=== PATIENT | male | born 1935 | race Caucasian/White ===

== ENCOUNTER 2016-06-18 09:53 | Emergency (ER) | payer OTHER ==
[~2016-06-18] VITALS: Ht 167.6 cm; Wt 58.1 kg
[~2016-06-18 09:53] MED LIST: ASPIRIN81 M2 PO; LEVAQUIN750 MG PO; MECLIZINE HCL25 M2 PO; METFORMIN HCL500 MG PO; SIMVASTATIN10 M1 PO
[2016-06-18 10:12] VITALS: BP 119/85
--- NOTE | 2016-06-18 10:20 | NUR ---
Patient to bed 08.
--- NOTE | 2016-06-18 10:25 | NUR ---
PATIENT PRESENTS TO ED WITH COUGH X 1MONTH . PER SON, IT HAS BEEN GETTING WORSE . DENIES N/V/D; SKIN IS PINK/WARM/DRY; AAOX4 WITH EVEN AND STEADY GAIT; LUNGS CLEAR BL; HR EVEN AND REGULAR; PT DENIES ANY FEVER, CP, SOB, OR COUGH AT THIS TIME; PATIENT STATES PAIN OF 0/10 AT THIS TIME; VSS; PATIENT POSITIONED FOR COMFORT; HOB ELEVATED; BEDRAILS UP X2; BED DOWN. ER MD MADE AWARE OF PT STATUS.
--- NOTE | 2016-06-18 10:27 | NUR ---
Dr. Soto evaluating patient at bedside.
[2016-06-18] MEDS ORDERED: NACL 0.9% 1,000 ML IV ONE (10:35)
--- NOTE | 2016-06-18 10:50 | NUR ---
CXR AT BEDSIDE.
[2016-06-18 12:24] VITALS: BP 115/91
--- NOTE | 2016-06-18 12:25 | NUR ---
Patient discharged with v/s stable. Written and verbal after care instructions given and explained. Patient alert, oriented and verbalized understanding of instructions. Ambulatory with steady gait. All questions addressed prior to discharge. ID band removed. Patient advised to follow up with PMD. Rx of LEVAQUIN given. Patient educated on indication of medication including possible reaction and side effects. Opportunity to ask questions provided and answered.
[2016-07-28] MEDS ORDERED: FEROSUL325 MG PO (16:48)
[2016-07-28] MEDS ORDERED: MACROBID100 M1 PO (16:48)
== END 2016-06-18 12:25 | disposition home or self-care (01) ==
LOC: MED 09:53
DX: J18.9 Pneumonia, unspecified organism (principal); E11.65 Type 2 diabetes mellitus with hyperglycemia; R91.8 Other nonspecific abnormal finding of lung field; Z86.73 Personal history of transient ischemic attack (TIA), and cerebral infarction without residual deficits
CPT/HCPCS: 36415; 71010; 80053; 82948; 85025; 96360; 99285; J7030; Q0092

== ENCOUNTER 2016-07-24 18:16 | Inpatient (IN) | payer OTHER ==
[~2016-07-24] VITALS: Ht 167.6 cm; Wt 68.0 kg
[~2016-07-24 18:16] MED LIST changes: +ASPI81TA28 PO; -ASPIRIN81 M2 PO; -LEVAQUIN750 MG PO; +MECL-221 PO; -MECLIZINE HCL25 M2 PO; +METF500T4 PO; -METFORMIN HCL500 MG PO; +SIMV10TA6 PO; -SIMVASTATIN10 M1 PO
[2016-07-24 19:12] VITALS: BP 102/98
[2016-07-24] MEDS ORDERED: NACL 0.9% 1,000 ML IV ONE (19:38)
[2016-07-24 20:20] LABS: BASOPHILS # (AUTO) 0.1 K/uL (0.00-0.22); BASOPHILS % (AUTO) 0.7 % (0.0-2.0); EOSINOPHILS # (AUTO) 0.2 K/uL (0-0.4); EOSINOPHILS % (AUTO) 2.5 % (0.0-4.0); HEMATOCRIT 39.7 % (36-52); HEMOGLOBIN 12.6 g/dL (12.0-18.0); LYMPHOCYTES # (AUTO) 1.2 K/uL (2.0-11.5); LYMPHOCYTES % (AUTO) 13.7 % (20.5-51.1); MEAN CORPUSCULAR HEMOGLOBIN 25 pg (27-31); MEAN CORPUSCULAR HGB CONC 32 g/dL (33-37); MEAN CORPUSCULAR VOLUME 78 fL (80-94); MONOCYTES # (AUTO) 0.9 K/uL (0.8-1.0); MONOCYTES % (AUTO) 11.1 % (1.7-9.3); NEUTROPHILS # (AUTO) 6.2 K/uL (1.8-7.7); PLATELET COUNT (AUTO) 365 K/uL (140-450); RED BLOOD CELL COUNT(AUTO) 5.09 MIL/uL (4.20-6.10); RED CELL DISTRIBUTION WIDTH 15.4 % (11.6-13.7); WHITE BLOOD COUNT (AUTO) 8.6 K/uL (4.8-10.8)
[2016-07-24 20:32] LABS: ANION GAP 9.9 (8-16); CALCIUM 9.2 mg/dL (8.5-10.1); CARBON DIOXIDE 31.5 mmol/L (21-32); CHLORIDE 105 mmol/L (98-107); CREATININE 1.1 mg/dL (0.6-1.3); GLUCOSE 125 mg/dL (74-106); POTASSIUM 4.4 mmol/L (3.5-5.1); SODIUM SERUM 142 mmol/L (136-145); UREA NITROGEN, BLOOD 21 mg/dL (7-18)
[2016-07-24 20:38] LABS: ALANINE AMINOTRANSFERASE 14 U/L (12-78); ALBUMIN 3.4 g/dL (3.4-5.0); ALKALINE PHOSPHATASE 98 U/L (46-116); ASPARTATE AMINOTRANSFERASE 17 U/L (15-37); LIPASE 249 U/L (73-393); TOTAL BILIRUBIN 0.5 mg/dL (0.0-1.0); TOTAL PROTEIN, SERUM 7.9 g/dL (6.4-8.2)
[2016-07-24 20:41] LABS: LACTIC ACID 0.8 mmol/L (0.4-2.0)
[2016-07-24 20:42] LABS: INR 1.2 (0.8-1.2); PROTHROMBIN TIME 11.1 secs (10.8-13.4)
--- NOTE | 2016-07-24 20:51 | NUR ---
Patient to bed 03.
--- NOTE | 2016-07-24 20:55 | NUR ---
Dr. Pierre evaluating patient at bedside.
--- NOTE | 2016-07-24 21:12 | NUR ---
PATIENT PRESENTS TO ED S/P FALL . PT STATES HE FEELS NO PAIN AT THIS TIME . DENIES N/V/D; SKIN IS PINK/WARM/DRY; AAOX4 WITH EVEN AND STEADY GAIT; LUNGS CLEAR BL; HR EVEN AND REGULAR; PT DENIES ANY FEVER, CP, SOB, OR COUGH AT THIS TIME; PATIENT STATES PAIN OF 0/10 AT THIS TIME; VSS; PATIENT POSITIONED FOR COMFORT; HOB ELEVATED; BEDRAILS UP X2; BED DOWN. ER MD MADE AWARE OF PT STATUS. SON AT BEDSIDE
[2016-07-24 22:07] LABS: APPEARANCE,URINE SL CLOUDY (CLEAR); BILIRUBIN,URINE NEGATIVE (NEGATIVE); BLOOD, URINE TRACE-L (NEGATIVE); COLOR,URINE YELLOW (YELLOW); LEUKOCYTE ESTERASE ,URINE 1+ (NEGATIVE); NITRITE, URINE NEGATIVE (NEGATIVE); PROTEIN,URINE 2+ (NEGATIVE); UGLUCOSE 2+ (NEGATIVE); UROBILINOGEN,URINE 0.2 EU/dL (0.2 - 1)
[2016-07-24 22:19] LABS: BACTERIA,URINE 4+ /HPF (None Seen); RBC,URINE 0-5 (RARE) /HPF (0-5); WBC,URINE TOO MANY TO COUNT /HPF (0-5)
[2016-07-24 22:20] LABS: SQUAMOUS EPITHELIAL CELL,UR None Seen /LPF (0-3 (FEW))
[2016-07-24] MEDS ORDERED: cefTRIAXone 1,000 MG VIAL ONE (22:46)
[2016-07-24] MEDS ORDERED: ACETAMINOPHEN 325 MG TAB PO PRN (23:10)
[2016-07-24] MEDS ORDERED: ONDANSETRON 4 MG/2 ML VIAL IVP PRN (23:10)
[2016-07-24] MEDS ORDERED: DEXTROSE 50% 50 ML SYR IVP PRN (23:15)
[2016-07-24] MEDS ORDERED: INSULIN LISPRO SLIDING SCALE 100 UNITS/ML VIAL SUBQ PRN (23:15)
[2016-07-24] MEDS: NACL 0.9% 1,000 ML IV SCH (23:25)
--- NOTE | 2016-07-24 23:48 | NUR ---
Patient will be admitted to care of DR. HEATH. Admited to TELE. Will go to room 109B. Belongings list completed. Report to DOMINGA MARI.
--- NOTE | 2016-07-25 00:04 | NUR ---
Pt report given to DOMINGA MARI. Transfer of care at this time.
[2016-07-25 00:10] VITALS: BP 150/89
[2016-07-25 00:14] LABS: FREE T4 (FREE THYROXINE) 1.05 ng/dL (0.76-1.46); THYROID STIMULATING HORMONE 1.15 uIU/mL (0.34-3.76)
--- NOTE | 2016-07-25 00:30 | NUR ---
PATIENT ARRIVED TO UNIT VIA GURNEY. PATIENT IS AWAKE AND ALERT. ORIENTED X4 WITH OCCASIONAL FORGETFULNESS. PATIENT ABLE TO ASSIST IN TRANSFERRING HIMSELF TO THE BED. PATIENT IS ON ROOM AIR, NO SOB OR SIGN OF DISTRESS NOTED. PATIENT SKIN IS INTACT, DENIES PAIN AT THIS TIME. IV TO RIGHT UPPER ARM PATENT AND INTACT. PATIENT CONNECTED TO TELE BOX, ORIENTED PATIENT TO ROOM AND CALL LIGHT, DISCUSSED PLAN OF CARE WITH PATIENT, PATIENT VERBALIZED UNDERSTANDING, SAFETY MEASURES CHECKED, CALL LIGHT WITHIN REACH. WILL CONTINUE TO MONITOR. VITAL SIGNS STABLE.
--- NOTE | 2016-07-25 01:00 | NUR ---
PROVIDED PATIENT WITH SANDWICH, PATIENT RESTING IN BED, BED ALARM ON, REINFORCE PATIENT TO USE URINAL IF NEEDS TO USE RESTROOM, CALL LIGHT WITHIN REACH, WILL CONTINUE TO MONITOR.
[2016-07-25] MEDS ORDERED: INFLUENZA VIRUS VACCINE QUAD 0.5 ML SYR IMVAC ONE (02:25)
[2016-07-25] MEDS ORDERED: PNEUMOCOCCAL VACCINE 23 MCG/0.5 ML VIAL IMVAC ONE (02:25)
--- NOTE | 2016-07-25 02:30 | NUR ---
PATIENT SLEEPING, NO SOB OR SIGN OF DISTRESS, CALL LIGHT WITHIN REACH. WILL CONTINUE TO MONITOR.
[2016-07-25] MEDS ORDERED: INFLUENZA VIRUS VACCINE QUAD 0.5 ML SYR IMVAC PRN (02:35)
[2016-07-25] MEDS ORDERED: PNEUMOCOCCAL VACCINE 23 MCG/0.5 ML VIAL IMVAC PRN (02:35)
[2016-07-25 04:00] VITALS: BP 139/70
--- NOTE | 2016-07-25 04:15 | NUR ---
PATIENT GOT UPSET, STATING HE "HATES BEING IN THE HOSPITAL AND WANTS TO GO HOME" EXPLAINED TO PATIENT THE DOCTORS WANT TO MONITOR HIM AND MAKE SURE HE IS OKAY, PATIENT VERBALIZED UNDERSTANDING, APOLOGIZED FOR GETTING UPSET, VITAL SIGNS STABLE, CALL LIGHT WITHIN REACH. WILL CONTINUE TO MONITOR.
[2016-07-25] MEDS: HYDROcodone/APAP 5/325 MG 1 TAB TAB PO PRN ×2 (05:58→21:29)
[2016-07-25] MEDS: BLOOD GLUCOSE MONITORING 1 DEV DEV FS SCH ×4 (06:00→21:29)
--- NOTE | 2016-07-25 06:07 | NUR ---
BS CHECK 117, NO COVERAGE, PATIENT C/O PAIN IN KNEE, ADMINISTERED NORCO PER MD ORDER, CALL LIGHT WITHIN REACH. WILL CONTINUE TO MONITOR.
[2016-07-25 06:26] LABS: BASOPHILS # (AUTO) 0.1 K/uL (0.00-0.22); BASOPHILS % (AUTO) 0.8 % (0.0-2.0); EOSINOPHILS # (AUTO) 0.3 K/uL (0-0.4); EOSINOPHILS % (AUTO) 3.5 % (0.0-4.0); HEMATOCRIT 35.2 % (36-52); HEMOGLOBIN 11.6 g/dL (12.0-18.0); LYMPHOCYTES # (AUTO) 1.2 K/uL (2.0-11.5); LYMPHOCYTES % (AUTO) 15.3 % (20.5-51.1); MEAN CORPUSCULAR HEMOGLOBIN 25 pg (27-31); MEAN CORPUSCULAR HGB CONC 33 g/dL (33-37); MEAN CORPUSCULAR VOLUME 77 fL (80-94); NEUTROPHILS # (AUTO) 5.2 K/uL (1.8-7.7); NEUTROPHILS % (AUTO) 67.4 % (42.2-75.2); PLATELET COUNT (AUTO) 284 K/uL (140-450); RED BLOOD CELL COUNT(AUTO) 4.58 MIL/uL (4.20-6.10); RED CELL DISTRIBUTION WIDTH 15.2 % (11.6-13.7); WHITE BLOOD COUNT (AUTO) 7.8 K/uL (4.8-10.8)
[2016-07-25 06:37] LABS: ANION GAP 7.4 (8-16); CALCIUM 8.4 mg/dL (8.5-10.1); CARBON DIOXIDE 30.4 mmol/L (21-32); CHLORIDE 108 mmol/L (98-107); GLUCOSE 118 mg/dL (74-106); POTASSIUM 4.8 mmol/L (3.5-5.1); SODIUM SERUM 141 mmol/L (136-145); UREA NITROGEN, BLOOD 19 mg/dL (7-18)
[2016-07-25 06:45] LABS: MAGNESIUM 1.8 mg/dL (1.8-2.4); PHOSPHORUS 2.8 mg/dL (2.5-4.9)
--- NOTE | 2016-07-25 07:15 | NUR ---
PATIENT HAS BEEN SCREENED AND CATEGORIZED MODERATE NUTRITION RISK. PATIENT WILL BE SEEN WITHIN 3-5 DAYS OF ADMISSION. 07/27/16-07/29/16 OLIMPIA JJ MS, RDN
--- NOTE | 2016-07-25 07:23 | NUR ---
ENDORSED PATIENT TO DAY SHIFT RN AT BEDSIDE, PATIENT IN STABLE CONDITION.
--- NOTE | 2016-07-25 07:25 | NUR ---
RECEIVED REPORT FROM NIGHT RN. PT RESTING IN BED. AAOX4. NO S/S OF ACUTE DISTRESS. PT DENIES PAIN. IV SITE PATENT AND INTACT. CALL LIGHT WITHIN REACH. WILL CONTINUE TO MONITOR.
[2016-07-25 08:00] VITALS: BP 127/82
[2016-07-25] MEDS: ECOTRIN 81 MG TABEC PO SCH (08:18)
[2016-07-25] MEDS: LACTOBACILLUS RHAMNOSUS GG 1 EACH CAP PO SCH (08:19)
[2016-07-25] MEDS: metFORMIN 500 MG TAB PO SCH ×2 (08:19→17:11)
[2016-07-25] MEDS: DOCUSATE SODIUM 100 MG GELCAP PO SCH (08:19)
[2016-07-25] MEDS: NACL 0.9% 1,000 ML IV SCH ×2 (08:20→13:56)
--- NOTE | 2016-07-25 09:57 | NUR ---
PT RESTING IN BED. NO S/S OF ACUTE DISTRESS. PT TOLERATED AM MEDS WELL. PT DENIES PAIN. CALL LIGHT WITHIN REACH. SAFETY MEASURES ENSURED. WILL CONTINUE TO MONITOR.
[2016-07-25 12:00] VITALS: BP 120/69
--- NOTE | 2016-07-25 12:25 | NUR ---
PT RESTING IN BED. NO S/S OF ACUTE DISTRESS. PT DENIES PAIN. SON AT BEDSIDE. CALL LIGHT WITHIN REACH. SAFETY MEASURES ENSURED. WILL CONTINUE TO MONITOR.
--- NOTE | 2016-07-25 14:47 | NUR ---
PT RESTING IN BED. NO S/S OF ACUTE DISTRESS. PT DENIES PAIN. CALL LIGHT WITHIN REACH. SAFETY MEASURES ENSURED. WILL CONTINUE TO MONITOR.
--- NOTE | 2016-07-25 15:18 | NUR ---
P.T. NOTES P.T. EVAL ORDER CANCELLED; NURSE AWARE.
[2016-07-25 16:00] VITALS: BP_SYST 148; BP_SYST 157; BP_DIAS 78; BP_DIAS 81; BP_DIAS 99
--- NOTE | 2016-07-25 16:30 | NUR ---
PT RESTING IN BED. NO S/S OF ACUTE DISTRESS. PT DENIES PAIN. CALL LIGHT WITHIN REACH. WILL CONTINUE TO MONITOR.
[2016-07-25] MEDS: FERROUS SULFATE 325 MG TABEC PO SCH (17:11)
--- NOTE | 2016-07-25 19:14 | NUR ---
ENDORSED PLAN OF CARE TO NIGHT RN. PT REMAINS IN STABLE CONDITION
--- NOTE | 2016-07-25 19:25 | NUR ---
RECEIVED REPORT FROM DAY NURSEJESSIKA. PATIENT RESTING IN BED. NO RESPIRATORY DISTRESS, SOB, OR DISCOMFORT. INITIAL ASSESSMENT AND BODY CHECK DONE. PATIENT IS AOX2 WITH PERIODS OF CONFUSION. SKIN IS INTACT, IV ACCESS TO RIGHT UPPER ARM 20G, PATENT. DISCUSSED PLAN OF CARE, MEDICATION REGIMENT, AND PAIN MANAGEMENT WITH PATIENT. PLACED PATIENT ON SAFETY/FALL PRECAUTIONS. CALL LIGHT LEFT WITHIN REACH, WILL CONTINUE TO MONITOR.
[2016-07-25 20:00] VITALS: BP 137/82
[2016-07-25] MEDS: SIMVASTATIN 10 MG TAB PO SCH (21:29)
--- NOTE | 2016-07-25 22:22 | NUR ---
PATIENT IN BED, SLEEPING. NO RESPIRATORY DISTRESS, SOB, OR DISCOMFORT. CALL LIGHT LEFT WITHIN REACH, WILL CONTINUE TO MONITOR.
[2016-07-26] VITALS: BP 131/80
[2016-07-26] MEDS: NACL 0.9% 1,000 ML IV SCH
--- NOTE | 2016-07-26 01:12 | NUR ---
PATIENT'S LINEN AND GOWN CHANGED AT THIS TIME WITH CERAMICS TEACHER: ANDRÉS, AND RN: MILAGRO. PATIENT TOLERATED WELL. NO RESPIRATORY DISTRESS, SOB, OR DISCOMFORT. CALL LIGHT LEFT WITHIN REACH, WILL CONTINUE TO MONITOR.
--- NOTE | 2016-07-26 03:05 | NUR ---
PATIENT ASLEEP. NO RESPIRATORY DISTRESS, SOB, OR DISCOMFORT. CALL LIGHT LEFT WITHIN REACH, WILL CONTINUE TO MONITOR.
[2016-07-26 04:00] VITALS: BP 143/82
--- NOTE | 2016-07-26 06:03 | NUR ---
PATIENT SLEEPING. NO RESPIRATORY DISTRESS, SOB, OR DISCOMFORT. CALL LIGHT LEFT WITHIN REACH, WILL CONTINUE TO MONITOR.
[2016-07-26 06:26] LABS: ANION GAP 7.3 (8-16); CALCIUM 8.2 mg/dL (8.5-10.1); CARBON DIOXIDE 31.7 mmol/L (21-32); CHLORIDE 105 mmol/L (98-107); CREATININE 0.9 mg/dL (0.6-1.3); GLUCOSE 80 mg/dL (74-106); SODIUM SERUM 140 mmol/L (136-145); UREA NITROGEN, BLOOD 11 mg/dL (7-18)
[2016-07-26] MEDS: BLOOD GLUCOSE MONITORING 1 DEV DEV FS SCH ×4 (06:31→21:13)
[2016-07-26 06:47] LABS: BASOPHILS # (AUTO) 0.1 K/uL (0.00-0.22); BASOPHILS % (AUTO) 1.3 % (0.0-2.0); EOSINOPHILS # (AUTO) 0.2 K/uL (0-0.4); EOSINOPHILS % (AUTO) 3.4 % (0.0-4.0); HEMATOCRIT 37.4 % (36-52); HEMOGLOBIN 12.4 g/dL (12.0-18.0); LYMPHOCYTES # (AUTO) 1.1 K/uL (2.0-11.5); LYMPHOCYTES % (AUTO) 16.2 % (20.5-51.1); MEAN CORPUSCULAR HEMOGLOBIN 25 pg (27-31); MEAN CORPUSCULAR HGB CONC 33 g/dL (33-37); MEAN CORPUSCULAR VOLUME 77 fL (80-94); MONOCYTES # (AUTO) 0.9 K/uL (0.8-1.0); MONOCYTES % (AUTO) 13.2 % (1.7-9.3); NEUTROPHILS # (AUTO) 4.8 K/uL (1.8-7.7); NEUTROPHILS % (AUTO) 65.9 % (42.2-75.2); PLATELET COUNT (AUTO) 302 K/uL (140-450); RED BLOOD CELL COUNT(AUTO) 4.86 MIL/uL (4.20-6.10); RED CELL DISTRIBUTION WIDTH 15.3 % (11.6-13.7); WHITE BLOOD COUNT (AUTO) 7.1 K/uL (4.8-10.8)
[2016-07-26 06:58] LABS: MAGNESIUM 1.8 mg/dL (1.8-2.4); PHOSPHORUS 3.1 mg/dL (2.5-4.9)
--- NOTE | 2016-07-26 07:04 | NUR ---
REPORT GIVEN TO DAY NURSEJESSIKA. PATIENT RESTING IN BED, STABLE. NO RESPIRATORY DISTRESS, SOB, OR DISCOMFORT. ALL NEEDS ATTENDED TO DURING SHIFT, CALL LIGHT LEFT WITHIN REACH.
--- NOTE | 2016-07-26 07:06 | NUR ---
RECEIVED REPORT FROM NIGHT RN. PT RESTING IN BED. AAOX3. NO S/S OF ACUTE DISTRESS. PT DENIES PAIN. CALL LIGHT WITHIN REACH. SAFETY MEASURES ENSURED. BED ALARM ON. WILL CONTINUE TO MONITOR.
[2016-07-26 07:57] VITALS: BP 141/86
[2016-07-26] MEDS: metFORMIN 500 MG TAB PO SCH ×2 (08:00→16:25)
[2016-07-26] MEDS: ECOTRIN 81 MG TABEC PO SCH (08:19)
[2016-07-26] MEDS: LACTOBACILLUS RHAMNOSUS GG 1 EACH CAP PO SCH (08:19)
[2016-07-26] MEDS: DOCUSATE SODIUM 100 MG GELCAP PO SCH (08:19)
[2016-07-26] MEDS: FERROUS SULFATE 325 MG TABEC PO SCH ×2 (08:19→16:25)
--- NOTE | 2016-07-26 10:22 | NUR ---
PT RESTING IN BED. NO S/S OF ACUTE DISTRESS. FAMILY AT BEDSIDE. PT TOLERATED AM MEDS WELL. CALL LIGHT WITHIN REACH. SAFETY MEASURES ENSURED. WILL CONTINUE TO MONITOR.
[2016-07-26 12:00] VITALS: BP 141/75
--- NOTE | 2016-07-26 12:44 | NUR ---
PT RESTING IN BED. NO S/S OF ACUTE DISTRESS. PT DENIES PAIN. MORNING CARE PROVIDED. FAMILY AT BEDSIDE. CALL LIGHT WITHIN REACH. SAFETY MEASURES ENSURED. WILL CONTINUE TO MONITOR.
--- NOTE | 2016-07-26 14:36 | NUR ---
PT RESTING IN BED. NO S/S OF ACUTE DISTRESS. PT DENIES PAIN. CALL LIGHT WITHIN REACH. SAFETY MEASURES ENSURED. WILL CONTINUE TO MONITOR.
[2016-07-26 15:55] VITALS: BP 131/78
--- NOTE | 2016-07-26 17:14 | NUR ---
PT RESTING IN BED. NO S/S OF ACUTE DISTRESS. FLACC-0. CALL LIGHT WITHIN REACH. SAFETY MEASURES ENSURED. WILL CONTINUE TO MONITOR.
--- NOTE | 2016-07-26 19:03 | NUR ---
ENDORSED PLAN OF CARE TO NIGHT RN. PT REMAINS IN STABLE CONDITION.
--- NOTE | 2016-07-26 19:10 | NUR ---
RECEIVED PT FROM JESSIKA ORR PT IS AAOX3 AMBULATES WITHASSISTANT, IV ON RT ARM INFUSING WELL ON PT RESTING ON BED INITIAL ASSESSMENT DONE ON TELE SR
[2016-07-26 20:00] VITALS: BP 137/71
--- NOTE | 2016-07-26 21:00 | NUR ---
PT CONFUSED DOES NOT WANT TO STAY ON BED UNCOOPERATIVE ON TELE SR PAC
[2016-07-26] MEDS: SIMVASTATIN 10 MG TAB PO SCH (21:15)
[2016-07-26] MEDS: QUEtiapine FUMARATE 25 MG TAB PO SCH (21:15)
--- NOTE | 2016-07-26 21:59 | NUR ---
ABLOOD SUGAR TEST 112 NOT COVERAGE
[2016-07-27] VITALS: BP 135/70
--- NOTE | 2016-07-27 | NUR ---
PT COMBATIVE REMOVING IV AND TELEMETRY REMOVING ALL HIS CLOTHS AND WANT TO WALK NAKED AROUND THE UNIT CHARGE NURSE, NURSES HELPING TO STABILIZE THE PT, ANDRÉS AND OIL PAINT SHADER CAME AND HELP TO GET PT TO HIS ROOM 109 B, DR ECHEVERRIA WAS CALL AND NOTIFY PT CONDITION AND PT FAMILY WAS CALL TO INFORM PT BEHAVIOR AND KARISSA PT SON IS ON HIS WAY TO HELP HIS DAD TO BE ORIENTED
[2016-07-27] MEDS ORDERED: LORazepam 2 MG/ML VIAL IVP SCH (01:10)
--- NOTE | 2016-07-27 01:10 | NUR ---
KARISSA PT 'S SON IS HERE AT PT BEDSIDE AND PT IS ON BED GETTING SLEEP NOT ATIVAN GIVEN AT THIS TIME
--- NOTE | 2016-07-27 03:00 | NUR ---
PT STILL ON BED KARISSA ASSISTING PT TO STAY ON TELEMETRY AND COME BACK TO SLEEP, NOT DISTRESS AT THIS TIME NOTED.
[2016-07-27 04:00] VITALS: BP 124/61
--- NOTE | 2016-07-27 04:00 | NUR ---
PT SON KARISSA LEAVING THE UNIT COMING BACK HOME AND SAY TO CALL BACK ANY TIME
--- NOTE | 2016-07-27 04:30 | NUR ---
PT AWAKE AMBULATES TO THE RESTROOM UNBALANCE AND I WANT TO HELP HIM AND PT STARTED AGAIN TO HIT NURSES AND BE VERY COMBATIVE SECURITY WAS CALL TO HELP AND PT COME BACK AGAIN TO BED TO SLEEP
[2016-07-27 06:18] LABS: BASOPHILS # (AUTO) 0.1 K/uL (0.00-0.22); EOSINOPHILS # (AUTO) 0.2 K/uL (0-0.4); EOSINOPHILS % (AUTO) 3.2 % (0.0-4.0); HEMATOCRIT 36.1 % (36-52); HEMOGLOBIN 11.9 g/dL (12.0-18.0); LYMPHOCYTES # (AUTO) 1.2 K/uL (2.0-11.5); LYMPHOCYTES % (AUTO) 17.9 % (20.5-51.1); MEAN CORPUSCULAR HEMOGLOBIN 25 pg (27-31); MEAN CORPUSCULAR HGB CONC 33 g/dL (33-37); MEAN CORPUSCULAR VOLUME 77 fL (80-94); MONOCYTES # (AUTO) 1.1 K/uL (0.8-1.0); MONOCYTES % (AUTO) 16.8 % (1.7-9.3); NEUTROPHILS % (AUTO) 61.1 % (42.2-75.2); PLATELET COUNT (AUTO) 307 K/uL (140-450); RED BLOOD CELL COUNT(AUTO) 4.71 MIL/uL (4.20-6.10); RED CELL DISTRIBUTION WIDTH 15.6 % (11.6-13.7); WHITE BLOOD COUNT (AUTO) 6.6 K/uL (4.8-10.8)
--- NOTE | 2016-07-27 06:31 | NUR ---
PT SLEEPING AT THIS TIME ON TELE SR 85
[2016-07-27 06:37] LABS: ANION GAP 10.4 (8-16); CALCIUM 8.6 mg/dL (8.5-10.1); CARBON DIOXIDE 28.5 mmol/L (21-32); CHLORIDE 104 mmol/L (98-107); CREATININE 0.9 mg/dL (0.6-1.3); GLUCOSE 87 mg/dL (74-106); POTASSIUM 3.9 mmol/L (3.5-5.1); SODIUM SERUM 139 mmol/L (136-145); UREA NITROGEN, BLOOD 12 mg/dL (7-18)
[2016-07-27 06:46] LABS: MAGNESIUM 1.9 mg/dL (1.8-2.4); PHOSPHORUS 3.5 mg/dL (2.5-4.9)
--- NOTE | 2016-07-27 07:05 | NUR ---
RECEIVED REPORT FROM NIGHT RN. PT RESTING IN BED. NO S/S OF ACUTE DISTRESS. PT DENIES PAIN. AAOX1-2, PT IS CONFUSED. PT HAS NO IV SITE. BED ALARM ON. CALL LIGHT WITHIN REACH. SAFETY MEASURES ENSURED. WILL CONTINUE TO MONITOR.
[2016-07-27] MEDS: BLOOD GLUCOSE MONITORING 1 DEV DEV FS SCH ×4 (07:30→20:55)
[2016-07-27 07:45] VITALS: BP 107/70
[2016-07-27] MEDS: FERROUS SULFATE 325 MG TABEC PO SCH ×2 (08:57→16:40)
[2016-07-27] MEDS: DOCUSATE SODIUM 100 MG GELCAP PO SCH (08:57)
[2016-07-27] MEDS: metFORMIN 500 MG TAB PO SCH ×2 (08:57→16:40)
[2016-07-27] MEDS: ECOTRIN 81 MG TABEC PO SCH (08:57)
[2016-07-27] MEDS: LISINOPRIL 10 MG TAB PO SCH (08:58)
[2016-07-27] MEDS: LACTOBACILLUS RHAMNOSUS GG 1 EACH CAP PO SCH (08:58)
[2016-07-27] MEDS ORDERED: HALOPERIDOL IM 5 MG/ML VIAL IM PRN ×2 (09:10→17:20)
[2016-07-27] MEDS ORDERED: HALOPERIDOL IM 5 MG/ML VIAL IM SCH (09:20)
--- NOTE | 2016-07-27 10:06 | NUR ---
PT RESTING IN BED. NO S/S OF ACUTE DISTRESS. PT DENIES PAIN. SON AT BEDSIDE. PT TOLERATED AM MEDS WELL. CALL LIGHT WITHIN REACH. SAFETY MEASURES ENSURED. WILL CONTINUE TO MONITOR.
[2016-07-27 12:00] VITALS: BP_SYST 14; BP_SYST 149; BP_DIAS 89
--- NOTE | 2016-07-27 12:39 | NUR ---
PT RESTING IN BED. NO S/S OF ACUTE DISTRESS. PT DENIES PAIN. CALL LIGHT WITHIN REACH. SAFETY MEASURES ENSURED. WILL CONTINUE TO MONITOR.
[2016-07-27 15:09] LABS: TRANSFERRIN 340 mg/dL (200-370)
--- NOTE | 2016-07-27 15:33 | NUR ---
PT RESTING IN BED. NO S/S OF ACUTE DISTRESS. PT DENIES PAIN. SON AT BEDSIDE. CALL LIGHT WITHIN REACH. WILL CONTINUE TO MONITOR.
[2016-07-27 16:00] VITALS: BP 128/84
[2016-07-27] MEDS: NACL 0.9% 1,000 ML IV SCH (16:42)
--- NOTE | 2016-07-27 19:18 | NUR ---
ENDORSED PLAN OF CARE TO NIGHT RN. PT REMAINS IN STABLE CONDITION.
--- NOTE | 2016-07-27 19:19 | NUR ---
RECEIVED PT IN STABLE CONDITION FROM DOMINGA ROSEN. NO SOB, NO SIGNS OF DISTRESS. PT IS AOX4, AMBULATES WITH ASSIST, MILD WEAKNESS TO BLE. VS STABLE ON ROOM AIR. SKIN TEAR TO RT WRIST. IV TO LT FA 22G PATENT, INTACT, SWELLING NOTED TO ARM. STOPPED FLUIDS, WILL DC IV AND START A NEW ONE. SCDS AND FALL PRECAUTIONS IN PLACE. PT DENIES PAIN AT THIS TIME. PLAN OF CARE DISCUSSED WITH PT. SAFETY MEASURES IN PLACE. CALL LIGHT WITHIN REACH. WILL CONTINUE TO MONITOR.
--- NOTE | 2016-07-27 19:58 | NUR ---
DC IV TO LT FA, STARTED NEW IV TO RT FA 22G PATENT, ASYMPTOMATIC, INTACT, IVF RUNNING.
[2016-07-27 20:00] VITALS: BP 143/88
[2016-07-27] MEDS: SIMVASTATIN 10 MG TAB PO SCH (20:19)
[2016-07-27] MEDS: QUEtiapine FUMARATE 25 MG TAB PO SCH (20:19)
--- NOTE | 2016-07-27 20:19 | NUR ---
PT TOLERATED DUE MEDS WELL. BLOOD SUGAR 128, NO COVERAGE NEEDED. NO SOB, NO SIGNS OF DISTRESS. IV SITE ASYMPTOMATIC, INTACT, PATENT, IVPB RUNNING. PT DENIES PAIN AT THIS TIME. PLAN OF CARE DISCUSSED WITH PT. SAFETY MEASURES IN PLACE. CALL LIGHT WITHIN REACH. WILL CONTINUE TO MONITOR.
[2016-07-28] VITALS: BP 96/58
--- NOTE | 2016-07-28 00:10 | NUR ---
HR TACHY, OTHER VS WNL ON ROOM AIR. NO SOB, NO SIGNS OF DISTRESS. IV SITE ASYMPTOMATIC, INTACT, PATENT, IVF RUNNING TKO. PT DENIES PAIN AT THIS TIME. PLAN OF CARE DISCUSSED WITH PT. SAFETY MEASURES IN PLACE. CALL LIGHT WITHIN REACH. WILL CONTINUE TO MONITOR.
--- NOTE | 2016-07-28 02:12 | NUR ---
PT ASLEEP IN BED. NO SOB, NO SIGNS OF DISTRESS. IV SITE ASYMPTOMATIC, INTACT, PATENT, IVF RUNNING. SAFETY MEASURES IN PLACE. CALL LIGHT WITHIN REACH. WILL CONTINUE TO MONITOR.
[2016-07-28 04:00] VITALS: BP 134/76
--- NOTE | 2016-07-28 04:18 | NUR ---
VS STABLE ON ROOM AIR. PT DENIES ANY PAIN AT THIS TIME. IV SITE ASYMPTOMATIC, INTACT, IVF RUNNING. PLAN OF CARE DISCUSSED WITH PT. SAFETY MEASURES IN PLACE. CALL LIGHT WITHIN REACH. WILL CONTINUE TO MONITOR.
[2016-07-28] MEDS: BLOOD GLUCOSE MONITORING 1 DEV DEV FS SCH ×3 (06:16→17:01)
[2016-07-28 06:19] LABS: BASOPHILS # (AUTO) 0.1 K/uL (0.00-0.22); BASOPHILS % (AUTO) 0.6 % (0.0-2.0); EOSINOPHILS # (AUTO) 0.2 K/uL (0-0.4); EOSINOPHILS % (AUTO) 2.2 % (0.0-4.0); HEMATOCRIT 36.3 % (36-52); HEMOGLOBIN 12.3 g/dL (12.0-18.0); LYMPHOCYTES # (AUTO) 1.3 K/uL (2.0-11.5); LYMPHOCYTES % (AUTO) 14.7 % (20.5-51.1); MEAN CORPUSCULAR HEMOGLOBIN 26 pg (27-31); MEAN CORPUSCULAR HGB CONC 34 g/dL (33-37); MEAN CORPUSCULAR VOLUME 76 fL (80-94); MONOCYTES # (AUTO) 1.2 K/uL (0.8-1.0); MONOCYTES % (AUTO) 13.8 % (1.7-9.3); NEUTROPHILS # (AUTO) 5.9 K/uL (1.8-7.7); NEUTROPHILS % (AUTO) 68.7 % (42.2-75.2); PLATELET COUNT (AUTO) 313 K/uL (140-450); RED CELL DISTRIBUTION WIDTH 15.2 % (11.6-13.7); WHITE BLOOD COUNT (AUTO) 8.7 K/uL (4.8-10.8)
[2016-07-28 06:42] LABS: ANION GAP 11.9 (8-16); CALCIUM 8.8 mg/dL (8.5-10.1); CHLORIDE 104 mmol/L (98-107); CREATININE 1.1 mg/dL (0.6-1.3); GLUCOSE 100 mg/dL (74-106); POTASSIUM 3.9 mmol/L (3.5-5.1); SODIUM SERUM 139 mmol/L (136-145); UREA NITROGEN, BLOOD 17 mg/dL (7-18)
--- NOTE | 2016-07-28 07:05 | NUR ---
ENDORSED PT IN STABLE CONDITION TO DOMINGA ROSEN. ALL NEEDS HAVE BEEN MET AT THIS TIME.
--- NOTE | 2016-07-28 07:07 | NUR ---
RECEIVED REPORT FROM NIGHT RN. PT RESTING IN BED. NO S/S OF ACUTE DISTRESS. AAO4. NO S/S OF ACUTE DISTRESS. PT DENIES PAIN. SKIN TEAR TO RIGHT WRIST NOTED. IV SITE PATENT AND INTACT. CALL LIGHT WITHIN REACH. SAFETY MEASURES ENSURED. WILL CONTINUE TO MONITOR.
[2016-07-28 07:59] VITALS: BP 143/80
[2016-07-28 08:40] LABS: FERRITIN 20 ng/mL (30-400)
[2016-07-28] MEDS: metFORMIN 500 MG TAB PO SCH ×2 (08:55→17:24)
[2016-07-28] MEDS: FERROUS SULFATE 325 MG TABEC PO SCH ×2 (08:55→17:23)
[2016-07-28] MEDS: ECOTRIN 81 MG TABEC PO SCH (08:56)
[2016-07-28] MEDS: LISINOPRIL 10 MG TAB PO SCH (08:56)
[2016-07-28] MEDS: LACTOBACILLUS RHAMNOSUS GG 1 EACH CAP PO SCH (08:56)
[2016-07-28] MEDS: DOCUSATE SODIUM 100 MG GELCAP PO SCH (08:56)
--- NOTE | 2016-07-28 11:17 | NUR ---
PT RESTING IN BED. NO S/S OF ACUTE DISTRESS. PT DENIES PAIN. PT TOLERATED AM MEDS WELL. CALL LIGHT WITHIN REACH. SAFETY MEASURES ENSURED. WILL CONTINUE TO MONITOR.
[2016-07-28 12:00] VITALS: BP 107/45
--- NOTE | 2016-07-28 12:07 | NUR ---
PT RESTING IN BED. NO S/S OF ACUTE DISTRESS. PT DENIES PAIN. CALL LIGHT WITHIN REACH. SAFETY MEASURES ENSURED. WILL CONTINUE TO MONITOR.
[2016-07-28] MEDS: NACL 0.9% 1,000 ML IV SCH (13:02)
--- NOTE | 2016-07-28 14:42 | NUR ---
PT RESTING IN BED. NO S/S OF ACUTE DISTRESS. PT DENIES PAIN. CALL LIGHT WITHIN REACH. SAFETY MEASURES ENSURED. WILL CONTINUE TO MONITOR.
--- NOTE | 2016-07-28 15:01 | NUR ---
SS NOTE: PRANAV PARDO FROM [facility] ([phone]), PT CAN GO TO ROOM 16B ANYTIME UNDER DR. Watson BEAN [place] DOM[place] [facility] [place] PT DUE TO PT ONLY HAVE MEDICARE PT A I SPOKE WITH PT'S SON, KARISSA AND INFORMED HIM OF THE ABOVE INFORMATION. HE STATED THAT HE IS IN AGREEMENT WITH PT GOING TO [facility] UPON DISCHARGE. HE ALSO STATED THAT HE IS UNABLE TO PAY FOR PT'S TRANSPORTATION. Addendum: 07/28/16 at 1518 by Lissy Valle SS PRANAV PARDO FROM [facility], SHE MET WITH PT BEDSIDE AND PT IS IN AGREEMENT WITH GOING TO THEIR FACILITY.
[2016-07-28 15:07] VITALS: BP 107/78
--- NOTE | 2016-07-28 15:23 | NUR ---
CM NOTE SPOKE UP WITH JARED OF [facility] # [phone] TO SET UP PATIENT TRANSPORT GOING TO [place] [id number] [address]ED [address], WOUND CARE SPECIALIST TIME 1830 TODAY, NUMBER TO CALL FOR REPORT [phone]. CHARGE NURSE BALBIR EXT [phone] AND NURSE JESSIKA EXT [phone] AWARE.
[2016-07-28 16:00] VITALS: BP 138/77
--- NOTE | 2016-07-28 16:04 | NUR ---
PT RESTING IN BED. NO S/S OF ACUTE DISTRESS. PT DENIES PAIN. CALL LIGHT WITHIN REACH. SAFETY MEASURES ENSURED. WILL CONTINUE TO MONITOR.
--- NOTE | 2016-07-28 16:20 | NUR ---
REPORT GIVEN TO RITCHIE GUERIN AT [facility]. SON MR. HOOD AND PT MADE AWARE. BOTH VERBALIZED UNDERSTANDING.
[2016-07-28] MEDS ORDERED: FERR-18 PO (16:48)
[2016-07-28] MEDS ORDERED: NITR100C7 PO (16:48)
--- NOTE | 2016-07-28 17:59 | NUR ---
PT CLEARED FOR TRANSFER. DISCHARGE TEACHING PROVIDED. PT VERBALIZED UNDERSTANDING. IV TAKEN OUT. TIP INTACT. FLU AND PNA VACCINE GIVEN. PREMIER HERE TO JUMP ROLL OPERATOR PT. NO S/S OF ACUTE DISTRESS. PT DENIES PAIN. PT REMAINS IN STABLE CONDITION.
== END 2016-07-28 17:59 | DRG 682 ==
LOC: MED 18:16 → MTU 22:57
PROVIDERS: ADMIT Student in an Organized Health Care Education/Training Program; ATTEND Student in an Organized Health Care Education/Training Program
DX: N17.0 Acute kidney failure with tubular necrosis (principal); G93.41 Metabolic encephalopathy; N39.0 Urinary tract infection, site not specified; D68.69 Other thrombophilia; F03.91 Unspecified dementia, unspecified severity, with behavioral disturbance; G90.9 Disorder of the autonomic nervous system, unspecified; I11.9 Hypertensive heart disease without heart failure; E11.65 Type 2 diabetes mellitus with hyperglycemia; E78.5 Hyperlipidemia, unspecified; D50.9 Iron deficiency anemia, unspecified; G31.9 Degenerative disease of nervous system, unspecified; R91.8 Other nonspecific abnormal finding of lung field; E11.51 Type 2 diabetes mellitus with diabetic peripheral angiopathy without gangrene; E86.0 Dehydration; W18.30XA Fall on same level, unspecified, initial encounter; Y93.89 Activity, other specified; Y92.009 Unspecified place in unspecified non-institutional (private) residence as the place of occurrence of the external cause; Y99.8 Other external cause status; Z79.82 Long term (current) use of aspirin; Z79.84 Long term (current) use of oral hypoglycemic drugs; Z79.899 Other long term (current) drug therapy; Z86.73 Personal history of transient ischemic attack (TIA), and cerebral infarction without residual deficits; Z87.01 Personal history of pneumonia (recurrent); Z87.11 Personal history of peptic ulcer disease
CPT/HCPCS: 36415; 70450; 71010; 80048; 80053; 81001; 82728; 82948; 83036; 83540; 83605; 83690; 83735; 83880; 84100; 84439; 84443; 84484; 85025; 85610; 87040; 87077; 87081; 87086; 87186; 90658; 90732; 93005; 93880; 93925; 93970; 96365; 97110; 99285; J0696; J1630; J1815; J2405; J7030; J7060; Q0092

== ENCOUNTER 2016-10-23 01:10 | Inpatient (IN) | payer MEDICAID, OTHER ==
[~2016-10-23] VITALS: Ht 167.6 cm; Wt 67.6 kg
[~2016-10-23 01:10] MED LIST changes: +FERR-18 PO; +NITR100C7 PO
[2016-10-23 01:16] VITALS: BP 108/77
--- NOTE | 2016-10-23 01:29 | NUR ---
BIB WHEELCHAIR TO ER BED 4
--- NOTE | 2016-10-23 01:48 | NUR ---
Note undone in EDM - 10/23/16 at 0228 by MEDSP 81Y/M PATIENT PRESENTS TO ED WITH C/O HEADACHE X 1 DAY . PT STATES STARTED HAVING HEADACHE THIS MORNING WITH N/V. HX.DM, CVA, COPD. DENIES N/V/D; SKIN IS PINK/WARM/DRY; AAOX4 WITH EVEN AND STEADY GAIT; LUNGS CLEAR BL; HR EVEN AND REGULAR; PT DENIES ANY FEVER, CP, SOB, OR COUGH AT THIS TIME; C/O HEADACHE, PATIENT STATES PAIN OF 4/10 AT THIS TIME; VSS; PATIENT POSITIONED FOR COMFORT; HOB ELEVATED; BEDRAILS UP X2; BED DOWN. ER MD MADE AWARE OF PT STATUS.
--- NOTE | 2016-10-23 01:48 | NUR ---
81Y/M PATIENT PRESENTS TO ED WITH C/O HEADACHE X 1 DAY . PT STATES STARTED HAVING HEADACHE THIS MORNING WITH N/V. HX.DM, CVA, COPD. DENIES N/V/D; SKIN IS PINK/WARM/DRY; AAOX4 AMBULATE WITH W/C ASSIST; LUNGS CLEAR BL; HR EVEN AND REGULAR; PT DENIES ANY FEVER, CP, SOB, OR COUGH AT THIS TIME; C/O HEADACHE, PATIENT STATES PAIN OF 4/10 AT THIS TIME; VSS; PATIENT POSITIONED FOR COMFORT; HOB ELEVATED; BEDRAILS UP X2; BED DOWN. ER MD MADE AWARE OF PT STATUS.
[2016-10-23] MEDS ORDERED: NACL 0.9% 1,000 ML IV ONE (02:10)
--- NOTE | 2016-10-23 02:25 | NUR ---
TAKE PT. TO CT
[2016-10-23 02:26] LABS: BASOPHILS % (AUTO) 0.4 % (0.0-2.0); EOSINOPHILS # (AUTO) 0.2 K/uL (0-0.4); EOSINOPHILS % (AUTO) 1.9 % (0.0-4.0); HEMATOCRIT 42.1 % (36-52); HEMOGLOBIN 13.4 g/dL (12.0-18.0); LYMPHOCYTES # (AUTO) 0.4 K/uL (2.0-11.5); MEAN CORPUSCULAR HEMOGLOBIN 25 pg (27-31); MEAN CORPUSCULAR HGB CONC 32 g/dL (33-37); MEAN CORPUSCULAR VOLUME 78 fL (80-94); MONOCYTES # (AUTO) 0.5 K/uL (0.8-1.0); MONOCYTES % (AUTO) 5.2 % (1.7-9.3); NEUTROPHILS # (AUTO) 9.3 K/uL (1.8-7.7); NEUTROPHILS % (AUTO) 88.4 % (42.2-75.2); PLATELET COUNT (AUTO) 377 K/uL (140-450); RED CELL DISTRIBUTION WIDTH 13.8 % (11.6-13.7); WHITE BLOOD COUNT (AUTO) 10.4 K/uL (4.8-10.8)
[2016-10-23 02:42] LABS: ALANINE AMINOTRANSFERASE 14 U/L (12-78); ALBUMIN 3.4 g/dL (3.4-5.0); ALKALINE PHOSPHATASE 112 U/L (46-116); ANION GAP 12.2 (8-16); ASPARTATE AMINOTRANSFERASE 18 U/L (15-37); CALCIUM 9.8 mg/dL (8.5-10.1); CARBON DIOXIDE 30.3 mmol/L (21-32); CHLORIDE 101 mmol/L (98-107); CREATININE 1.3 mg/dL (0.6-1.3); GLUCOSE 231 mg/dL (74-106); LIPASE 155 U/L (73-393); POTASSIUM 4.5 mmol/L (3.5-5.1); SODIUM SERUM 139 mmol/L (136-145); TOTAL BILIRUBIN 0.6 mg/dL (0.0-1.0); TOTAL PROTEIN, SERUM 8.5 g/dL (6.4-8.2); UREA NITROGEN, BLOOD 23 mg/dL (7-18)
[2016-10-23 02:43] LABS: LYMPHOCYTES % (AUTO) 4.1 % (20.5-51.1)
[2016-10-23 02:46] LABS: LACTIC ACID 2.4 mmol/L (0.4-2.0)
[2016-10-23 02:47] LABS: INR 1.2 (0.8-1.2); PROTHROMBIN TIME 11.7 secs (10.8-13.4)
[2016-10-23] MEDS ORDERED: NACL 0.9% 1,500 ML IV ONE (02:50)
--- NOTE | 2016-10-23 02:55 | NUR ---
BACK FROM CT
[2016-10-23] MEDS ORDERED: AZITHROMYCIN 500 MG in DEXTROSE 5% 250 ML IV ONE (03:00)
[2016-10-23 03:13] LABS: APPEARANCE,URINE CLEAR (CLEAR); BILIRUBIN,URINE NEGATIVE (NEGATIVE); BLOOD, URINE 2+ (NEGATIVE); COLOR,URINE YELLOW (YELLOW); LEUKOCYTE ESTERASE ,URINE NEGATIVE (NEGATIVE); NITRITE, URINE NEGATIVE (NEGATIVE); PROTEIN,URINE 2+ (NEGATIVE); UGLUCOSE 2+ (NEGATIVE); UROBILINOGEN,URINE 0.2 EU/dL (0.2 - 1)
[2016-10-23] MEDS ORDERED: AZITHROMYCIN 500 MG INJ VIAL IV ONE (03:22)
[2016-10-23] MEDS ORDERED: cefTRIAXone 1,000 MG VIAL ONE (03:22)
[2016-10-23 03:25] LABS: BACTERIA,URINE 4+ /HPF (None Seen); MUCUS,URINE 2+ /LPF (None Seen); SQUAMOUS EPITHELIAL CELL,UR 0-3 (FEW) /LPF (0-3 (FEW))
[2016-10-23] MEDS ORDERED: ACETAMINOPHEN 325 MG TAB PO PRN (04:30)
[2016-10-23] MEDS ORDERED: HYDROcodone/APAP 5/325 MG 1 TAB TAB PO PRN (04:30)
[2016-10-23] MEDS ORDERED: MORPHINE SULFATE 2 MG/ML SYR IVP PRN (04:30)
[2016-10-23] MEDS ORDERED: ONDANSETRON 4 MG/2 ML VIAL IVP PRN (04:30)
--- NOTE | 2016-10-23 04:40 | NUR ---
Patient appears to be resting comfortably in bed. Vital Signs within normal limits. Respirations even and unlabored.
[2016-10-23] MEDS ORDERED: DEXTROSE 50% 50 ML SYR IVP PRN ×2 (04:45→21:10)
[2016-10-23] MEDS ORDERED: INSULIN LISPRO SLIDING SCALE 100 UNITS/ML VIAL SUBQ PRN (04:45)
--- NOTE | 2016-10-23 04:50 | NUR ---
Patient will be admitted to care of . Admited to TELEMETRY. Will go to [id number]. Belongings list completed. Report to MOSES.
[2016-10-23] MEDS ORDERED: MECLIZINE 25 MG TAB PO PRN ×2 (04:55→07:10)
[2016-10-23] MEDS: NACL 0.9% 1,000 ML IV SCH ×2 (05:13→18:11)
[2016-10-23] MEDS ORDERED: PIPERACILLIN/TAZOBACTAM 3.375 GM VIAL IV ONE (05:14)
[2016-10-23 05:15] VITALS: BP 131/69
--- NOTE | 2016-10-23 05:15 | NUR ---
RECEIVED PT FROM ER VIA PRATEEK PT ON PLANIMETER OPERATOR SR AAOX4 HL ON RT FA GAUGE #18 PATENT SMALL SCABS AND BRUISES ON UPPER AND LOWER EXTREMITIES , PT IS ORIENTED TO THE FLOOR CALL LIGHT WITHIN REACH
[2016-10-23 05:18] LABS: CHOL/HDL RATIO 6.9 (1-4.5)
[2016-10-23 05:28] LABS: FREE T4 (FREE THYROXINE) 1.21 ng/dL (0.76-1.46); THYROID STIMULATING HORMONE 1.51 uIU/mL (0.34-3.76)
[2016-10-23] MEDS ORDERED: PIPERACILLIN/TAZOBACTAM 3.375 GM in DEXTROSE 5% 50 ML IV SCH (06:00)
[2016-10-23] MEDS: BLOOD GLUCOSE MONITORING 1 DEV DEV FS SCH ×4 (06:17→20:56)
--- NOTE | 2016-10-23 07:04 | NUR ---
BLOOD SUGAR 151 COVERAGE WITH2 UNITS HUMALOG
--- NOTE | 2016-10-23 07:30 | NUR ---
RECEIVED PT FROM AXLE INSPECTOR RN. PT IS AWAKE, ALERT, BUT PT IS FORGETFUL AND CONFUSED SOMETIMES. ON ROOM AIR, NO S/S OF RESPIRATORY DISTRESS NOTED. ABDOMEN SOFT, NONTENDER. IV TO RIGHT FOREARM # 18 , INTACT AND PATENT. SMALL SCABS AND BRUISES NOTED ON UPPER EXTREMITIES. PT ABLE TO MOVE ALL HIS EXTREMITIES. POC EXPLAINED TO PT, CALL LIGHT IN REACH, WILL CONTINUE TO MONITOR.
[2016-10-23 08:00] VITALS: BP 107/66
[2016-10-23] MEDS: ECOTRIN 81 MG TABEC PO SCH (08:24)
[2016-10-23] MEDS: LACTOBACILLUS RHAMNOSUS GG 1 EACH CAP PO SCH (08:25)
[2016-10-23] MEDS: metFORMIN 500 MG TAB PO SCH ×2 (08:25→17:20)
[2016-10-23] MEDS: FERROUS SULFATE 325 MG TABEC PO SCH (08:25)
--- NOTE | 2016-10-23 08:27 | NUR ---
PATIENT HAS BEEN SCREENED AND CATEGORIZED MODERATE NUTRITION RISK. PATIENT WILL BE SEEN WITHIN 3-5 DAYS OF ADMISSION. 10/25/16-10/27/[address]
--- NOTE | 2016-10-23 09:00 | NUR ---
DUE MEDS GIVEN. WILL CONTINUE TO MONITOR.
--- NOTE | 2016-10-23 10:10 | NUR ---
PT COMPLAINED THAT HE HAS PHYSICAL THERAPY AND YELLED AT NURSES.
[2016-10-23] MEDS: PIPER/TAZO 3.375GM/D5W PREMIX 50 ML IV SCH ×2 (11:59→18:11)
[2016-10-23 12:00] VITALS: BP 131/79
--- NOTE | 2016-10-23 12:02 | NUR ---
LUNCH TRAY SERVED.
[2016-10-23] MEDS ORDERED: PIPER/TAZO 3.375GM/D5W PREMIX 50 ML IV SCH (13:00)
--- NOTE | 2016-10-23 13:28 | NUR ---
PT UNCOOPERATIVE UNABLE TO EXPECTORATE SPUTUM AT THIS TIME ALSO PT COMPLAIN OF NAUSEA DOMINGA SUTHERLAND AWARE
--- NOTE | 2016-10-23 15:00 | NUR ---
PT YELLED TO DOCTOR AND NURSES AFTER HE HAD NAP . REORIENTATED PT HE IS IN HOSPITAL .
--- NOTE | 2016-10-23 15:55 | NUR ---
PT'S SON CALLED IN, UPDATED PT'S CONDITION. TOLD PT'S SON THAT PT YELLED AT US WITHOUT REASON THEN APOLOGIZED TO US. PER PT'S SON, PT HAS CONFUSION SOMETIMES .
[2016-10-23 16:00] VITALS: BP 130/70
--- NOTE | 2016-10-23 16:38 | NUR ---
AT BEDSIDE TO ASSESS PT. PT APOLOGIZED FOR HE YELLED AT US. .
[2016-10-23] MEDS ORDERED: ALBUTEROL SULFATE/IPRATROPIU 3 ML SOL IH PRN (17:25)
--- NOTE | 2016-10-23 17:30 | NUR ---
RECEIVE REPORT FROM ENA ORR FOR CONTINUITY OF CARE.
--- NOTE | 2016-10-23 18:14 | NUR ---
DUE MEDICATIONS GIVEN, PT CURRENTLY EATING DINNER, FAMILY AT BEDSIDE. ALL NEEDS MET
[2016-10-23] MEDS: ALBUTEROL SULFATE/IPRATROPIU 3 ML SOL IH SCH ×2 (19:16→23:59)
--- NOTE | 2016-10-23 19:30 | NUR ---
RECEIVED REPORT FROM AM NURSE. PT AOX2, ABLE TO VERBALIZE NEEDS, CONFUSED AT TIMES, PT IS MUMBLING AND DIFFICULT TO UNDERSTAND. PT DENIES PAIN, CHEST PAIN, SOB OR S/S OF ACUTE DISTRESS. MGMT CONSULTANT IN PLACE. PT HOB KEPT AT 30 DEGREES. IV ACCESS ASYMPTOMATIC, PATENT AND INTACT. IVF INFUSING WELL. DISCUSSED AND REVIEWED PLAN OF CARE WITH PT. PT VERBALIZED UNDERSTANDING. WILL CONTINUE TO REINFORCE TEACHING. PT INCONTINENT, PT CLEANED, BED LINENS CHANGED. PT TURNED AND REPOSITIONED, OFFLOADED PRESSURE SITES. SAFETY MEASURES ENSURED. CALL LIGHT WITHIN REACH. WILL CONTINUE TO MONITOR.
--- NOTE | 2016-10-23 19:30 | NUR ---
ENDORSED PLAN OF CARE TO NIGHT NURSE. PT IN STABLE CONDITION.
[2016-10-23] MEDS ORDERED: ALUMINUM HYD/MAG/SIMETHICONE 30 ML UDC PO PRN (19:55)
[2016-10-23 20:00] VITALS: BP 136/87
[2016-10-23] MEDS: FAMOTIDINE 20 MG/2 ML VIAL IV SCH (20:51)
[2016-10-23] MEDS: SIMVASTATIN 10 MG TAB PO SCH (20:51)
--- NOTE | 2016-10-23 20:59 | NUR ---
PT CLEANED, BED LINEN CHANGED. PT TURNED AND REPOSITIONED, OFFLOADED PRESSURE AREAS. PT TOLERATED WELL. ADMINISTERED DUE MEDICATIONS WITH EDUCATION. PT VERBALIZED UNDERSTANDING. BLOOD SUGAR 104, NO INSULIN COVERAGE NEEDED. ALL NEEDS MET. SAFETY MEASURES ENSURED. CALL LIGHT WITHIN REACH. WILL CONTINUE TO MONITOR.
--- NOTE | 2016-10-23 23:00 | NUR ---
NOTIFIED BY INTERNATIONAL REPRESENTATIVE THAT PT IS RESTLESS AND HEARD YELLING FROM THE HALLWAY. PT REORIENTED TO SITUATION AND SURROUNDINGS. PT STATING "WHY AM I WET. WHO MADE ME WET. I DIDN'T DO IT." PT CLEANED, BED LINEN AND GOWN CHANGED WITH INTERNATIONAL REPRESENTATIVE. SAFETY MEASURES ENSURED. CALL LIGHT WITHIN REACH. WILL CONTINUE TO MONITOR.
--- NOTE | 2016-10-23 23:13 | NUR ---
PT STILL RESTLESS AND CONFUSED. PT REORIENTED. OFFERED TO GIVE ATIVAN IV ORDERED FOR PRN RESTLESSNESS. PT STATED, "NO, I DON'T WANT ANYTHING." SAFETY MEASURES ENSURED. WILL CONTINUE TO MONITOR.
--- NOTE | 2016-10-24 | NUR ---
ATTEMPTED TO PUT ON BP CUFF ON PT'S ARM WHILE ASKING FOR PERMISSION TO TAKE VITAL SIGNS. PT THREW ARMS UP, YELLING "NO, I DON'T WANT ANYTHING DONE." ASKED PT IF HE WANTS ATIVAN IV FOR RESTLESSNESS AND TO HELP SLEEP, PT REFUSED, SAYING "NO, I DON'T WANT ANYTHING DONE." SAFETY MEASURES ENSURED. CALL LIGHT WITHIN REACH. WILL CONTINUE TO MONITOR.
--- NOTE | 2016-10-24 00:04 | NUR ---
PAGED DR TRIPLETT, MADE MD AWARE OF PT'S RESTLESSNESS AND CONFUSION, AND PT'S REFUSAL OF ATIVAN IV AND VITAL SIGNS. SAFETY MEASURES ENSURED. WILL CONTINUE TO MONITOR.
[2016-10-24] MEDS: PIPER/TAZO 3.375GM/D5W PREMIX 50 ML IV SCH ×4 (00:17→18:00)
--- NOTE | 2016-10-24 02:00 | NUR ---
PT SLEEPING COMFORTABLY AT THIS TIME. ALL NEEDS MET. SAFETY MEASURES ENSURED. CALL LIGHT WITHIN REACH. WILL CONTINUE TO MONITOR .
[2016-10-24] MEDS: ALBUTEROL SULFATE/IPRATROPIU 3 ML SOL IH SCH ×6 (03:55→23:21)
[2016-10-24 04:00] VITALS: BP 122/69
--- NOTE | 2016-10-24 04:00 | NUR ---
PT RESTING. VS NOTED. CONDITION STABLE. SAFETY MEASURES ENSURED. CALL LIGHT WITHIN REACH.
[2016-10-24] MEDS: BLOOD GLUCOSE MONITORING 1 DEV DEV FS SCH ×4 (06:05→20:51)
--- NOTE | 2016-10-24 06:05 | NUR ---
BLOOD SUGAR 58, PT AROUSABLE AND ABLE TO CONVERSATE. NO S/S OF ACUTE DISTRESS. GAVE ORANGE JUICE WITH SUGAR. WILL RECHECK IN 15MINS.
--- NOTE | 2016-10-24 06:22 | NUR ---
BLOOD SUGAR RECHECKED, 70. PT IS AWAKE, ALERT AND CONVERSATIONAL. STABLE, NO S/S OF ACUTE DISTRESS. GAVE MORE ORANGE JUICE AND SNACKS.
[2016-10-24 06:32] LABS: BASOPHILS # (AUTO) 0.1 K/uL (0.00-0.22); BASOPHILS % (AUTO) 1.7 % (0.0-2.0); EOSINOPHILS # (AUTO) 0.3 K/uL (0-0.4); EOSINOPHILS % (AUTO) 3.3 % (0.0-4.0); HEMOGLOBIN 10.8 g/dL (12.0-18.0); LYMPHOCYTES # (AUTO) 1.2 K/uL (2.0-11.5); LYMPHOCYTES % (AUTO) 15.4 % (20.5-51.1); MEAN CORPUSCULAR HEMOGLOBIN 25 pg (27-31); MEAN CORPUSCULAR HGB CONC 32 g/dL (33-37); MEAN CORPUSCULAR VOLUME 79 fL (80-94); MONOCYTES % (AUTO) 13.3 % (1.7-9.3); NEUTROPHILS # (AUTO) 5.2 K/uL (1.8-7.7); NEUTROPHILS % (AUTO) 66.3 % (42.2-75.2); PLATELET COUNT (AUTO) 296 K/uL (140-450); RED CELL DISTRIBUTION WIDTH 13.7 % (11.6-13.7); WHITE BLOOD COUNT (AUTO) 7.8 K/uL (4.8-10.8)
[2016-10-24 06:50] LABS: ANION GAP 9.4 (8-16); CALCIUM 8.6 mg/dL (8.5-10.1); CARBON DIOXIDE 29.9 mmol/L (21-32); CHLORIDE 105 mmol/L (98-107); CREATININE 1.1 mg/dL (0.6-1.3); GLUCOSE 63 mg/dL (74-106); POTASSIUM 3.3 mmol/L (3.5-5.1); SODIUM SERUM 141 mmol/L (136-145); UREA NITROGEN, BLOOD 13 mg/dL (7-18)
[2016-10-24 06:51] LABS: MAGNESIUM 1.7 mg/dL (1.8-2.4); PHOSPHORUS 2.7 mg/dL (2.5-4.9)
--- NOTE | 2016-10-24 07:27 | NUR ---
ENDORSED PLAN OF CARE TO AM NURSE. CONDITION STABLE.
--- NOTE | 2016-10-24 07:29 | NUR ---
RECEIVED REPORT FROM NIGHT RN. PT RESTING IN BED. AAOX3. NO S/S OF ACUTE DISTRESS. PT DENIES PAIN. IV SITE PATENT AND INTACT. TELE BOX IN PLACE. BED ALARM ON. CALL LIGHT WITHIN REACH. SAFETY MEASURES ENSURED. WILL CONTINUE TO MONITOR.
[2016-10-24] MEDS: metFORMIN 500 MG TAB PO SCH ×2 (08:00→16:43)
[2016-10-24 08:31] VITALS: BP 126/71
--- NOTE | 2016-10-24 08:57 | NUR ---
PT TAKEN OFF UNIT TO CT.
[2016-10-24] MEDS: ECOTRIN 81 MG TABEC PO SCH (09:30)
[2016-10-24] MEDS: FERROUS SULFATE 325 MG TABEC PO SCH (09:30)
[2016-10-24] MEDS: LACTOBACILLUS RHAMNOSUS GG 1 EACH CAP PO SCH (09:30)
--- NOTE | 2016-10-24 09:31 | NUR ---
AM MEDICATIONS GIVEN WITH EDUCATION. PT VERBALIZED UNDERSTANDING. SON AT BEDSIDE. WILL CONTINUE TO MONITOR.
[2016-10-24 09:42] LABS: T4 (THYROXINE) 7.2 ug/dL (4.5-12.0)
[2016-10-24 12:00] VITALS: BP 144/93
--- NOTE | 2016-10-24 12:18 | NUR ---
PT RESTING IN BED. NO S/S OF ACUTE DISTRESS. PT CHANGED AND REPOSITIONED. PT TOLERATED WELL. WILL CONTINUE TO MONITOR.
[2016-10-24] MEDS: LORazepam 2 MG/ML VIAL IM/IVP PRN (12:34)
--- NOTE | 2016-10-24 12:34 | NUR ---
PT APPEARS CONFUSED AND ANXIOUS, MEDICATED ORDERED. WILL CONTINUE TO MONITOR.
--- NOTE | 2016-10-24 13:44 | NUR ---
UPON ENTERING ROOM IV ON FOUND ON FLOOR. TIP INTACT. NO S/S OF ACUTE DISTRESS. MITTENS PLACED ON PT. DR. ROCA MADE AWARE. NEW IV STARTED. WILL CONTINUE TO MONITOR.
[2016-10-24] MEDS ORDERED: MAG SULF 2000 MG/WATER PREMIX 50 ML IV SCH (14:00)
--- NOTE | 2016-10-24 15:06 | NUR ---
DR. CARROLL IN TO SEE PT. PT LETHARGIC. BLOOD SUGAR CHECKED 63. PER DR. CARROLL GIVEN D 50 NOW.
[2016-10-24] MEDS: DEXT 5% / NACL 0.45% 1,000 ML IV SCH (15:15)
[2016-10-24 16:00] VITALS: BP 126/73
[2016-10-24] MEDS ORDERED: POTASSIUM CHLORIDE 40 MEQ, LIDOCAINE 1% 25 MG in NACL 0.9% 250 ML IV SCH (16:00)
--- NOTE | 2016-10-24 16:09 | NUR ---
PT SLEEPING IN BED. NO S/S OF ACUTE DISTRESS. WILL CONTINUE TO MONITOR.
--- NOTE | 2016-10-24 16:19 | NUR ---
PHYSICAL THERAPY CO-SIGN The Physical Therapy Progress Notes documented by [employer] have been reviewed. Reviewed/Co-Signed by: Taryn Banks PT Documentation Done by:MARIPOSA REDDY DAYCARE TEACHER PROGRESS ANGUS, WILL BENEFIT W/ P.T. AFTER ACUTE STAY Addendum: 10/24/16 at 1620 by Taryn Banks PT Amended: Links added.
[2016-10-24] MEDS ORDERED: HALOPERIDOL IM 5 MG/ML VIAL IM ONE ×2 (17:45→19:10)
[2016-10-24] MEDS ORDERED: HALOPERIDOL IM 5 MG/ML VIAL ONE (17:46)
--- NOTE | 2016-10-24 17:48 | NUR ---
PT AGITATED, CURSING AND TRYING TO GET OUT OF BED. HALDOL 2.5 MG IM X1 GIVEN ORDERED. WILL CONTINUE TO MONITOR PT.
--- NOTE | 2016-10-24 18:58 | NUR ---
PT REMAINS AGITATED, KICKING AND TRYING TO HIT STAFF. PT PULLED IV OUT. TIP INTACT. PT RESTRAINED WITH SOFT WRIST RESTRAINTS. PAGED.
[2016-10-24] MEDS ORDERED: diphenhydrAMINE 50 MG/ML VIAL IVP ONE (19:10)
--- NOTE | 2016-10-24 19:32 | NUR ---
ENDORSED PLAN OF CARE TO NIGHT RN. PT REMAINS STABLE.
--- NOTE | 2016-10-24 19:32 | NUR ---
RECEIVED REPORT FROM JESSIKA ORR AT BEDSIDE. PT IS ALERT, AWAKE ORIENTED X2 WITH CONFUSION. PT IS VERY AGITATED AND COMBATIVE. PULLING OUT IV LINES AND MONITOR. WILL GIVE PRN MEDICATION FOR AGITATION. NO S/S OF RESPIRATORY DISTRESS OR SOB NOTED. PLAN OF CARE REVIEWED TO PT BUT UNABLE TO COMPREHEND. CALL LIGHT WITHIN REACH. WILL CONTINUE TO MONITOR.
[2016-10-24 20:00] VITALS: BP 138/83
[2016-10-24] MEDS: FAMOTIDINE 20 MG/2 ML VIAL IV SCH (20:52)
[2016-10-24] MEDS: SIMVASTATIN 10 MG TAB PO SCH (20:53)
[2016-10-25] VITALS: BP 155/75
--- NOTE | 2016-10-25 00:25 | NUR ---
PT IS AGITATED AGAIN. SCREAMING, PULLING OUT IV LIVES, REMOVING MONITORS, HITTING STAFF, ANDTRYING TO GET OUT FROM THE BED. WILL ADMINISTER PRN MEDICATION FOR AGITATION ORDERED. WILL CONTINUE TO MONITOR.
[2016-10-25] MEDS: PIPER/TAZO 3.375GM/D5W PREMIX 50 ML IV SCH ×4 (00:28→18:03)
[2016-10-25] MEDS: LORazepam 2 MG/ML VIAL IM/IVP PRN ×3 (00:28→19:09)
--- NOTE | 2016-10-25 01:00 | NUR ---
PT IS SLEEPING RIGHT NOW BUT EASILY AROUSABLE. NO S/S OF ANY DISCOMFORT AT THIS TIME. ALL NEEDS ARE ATTENDED. CALL LIGHT WITHIN REACH. WILL CONTINUE TO MONITOR.
[2016-10-25] MEDS: ALBUTEROL SULFATE/IPRATROPIU 3 ML SOL IH SCH ×6 (03:36→23:42)
[2016-10-25 04:00] VITALS: BP 123/78
--- NOTE | 2016-10-25 05:00 | NUR ---
AM CARE RENDERED. BED LINEN CHANGED. REPOSITIONED PATIENT. KEPT CLEAN AND DRY. CALL LIGHT WITHIN REACH. WILL CONTINUE TO MONITOR.
[2016-10-25 06:40] LABS: ANION GAP 13.2 (8-16); CALCIUM 8.7 mg/dL (8.5-10.1); CARBON DIOXIDE 26.9 mmol/L (21-32); CHLORIDE 107 mmol/L (98-107); CREATININE 1.2 mg/dL (0.6-1.3); GLUCOSE 79 mg/dL (74-106); POTASSIUM 4.1 mmol/L (3.5-5.1); SODIUM SERUM 143 mmol/L (136-145); UREA NITROGEN, BLOOD 10 mg/dL (7-18)
[2016-10-25 06:45] LABS: MAGNESIUM 2.3 mg/dL (1.8-2.4); PHOSPHORUS 3.3 mg/dL (2.5-4.9)
[2016-10-25] MEDS: BLOOD GLUCOSE MONITORING 1 DEV DEV FS SCH ×4 (06:52→20:55)
[2016-10-25 07:03] LABS: BASOPHILS # (AUTO) 0.1 K/uL (0.00-0.22); BASOPHILS % (AUTO) 1.2 % (0.0-2.0); EOSINOPHILS # (AUTO) 0.3 K/uL (0-0.4); HEMATOCRIT 36.1 % (36-52); HEMOGLOBIN 11.9 g/dL (12.0-18.0); LYMPHOCYTES # (AUTO) 0.8 K/uL (2.0-11.5); LYMPHOCYTES % (AUTO) 12.8 % (20.5-51.1); MEAN CORPUSCULAR HEMOGLOBIN 26 pg (27-31); MEAN CORPUSCULAR HGB CONC 33 g/dL (33-37); MEAN CORPUSCULAR VOLUME 79 fL (80-94); MONOCYTES # (AUTO) 1.2 K/uL (0.8-1.0); MONOCYTES % (AUTO) 17.9 % (1.7-9.3); NEUTROPHILS # (AUTO) 4.1 K/uL (1.8-7.7); NEUTROPHILS % (AUTO) 64.1 % (42.2-75.2); PLATELET COUNT (AUTO) 284 K/uL (140-450); RED BLOOD CELL COUNT(AUTO) 4.57 MIL/uL (4.20-6.10); RED CELL DISTRIBUTION WIDTH 13.8 % (11.6-13.7); WHITE BLOOD COUNT (AUTO) 6.5 K/uL (4.8-10.8)
--- NOTE | 2016-10-25 07:30 | NUR ---
PT HAS NO S/S OF ANY DISCOMFORT. PLAN OF CARE ENDORSE TO TANIYA ORR AT BEDSIDE FOR CONTINUITY OF CARE.
--- NOTE | 2016-10-25 07:31 | NUR ---
RECEIVED REPORT FROM ELECTROPLATING WORKER NURSE AT BEDSIDE FOR CONTINUITY OF CARE. PT SLEEPING SOUNDLY. PER ELECTROPLATING WORKER NURSE PT WAS DIFFICULT AND COMBATIVE, NEEDED RESTRAINTS. PT IS NOW CALM AND NO SIGNS OF DISTRESS. IV L AND R FA AT 20 G D5 1/2 NS AT 50 ML. PT WET. WILL CLEAN AND CHANGE PT NEEDED. WILL CONTINUE TO ASSESS PT.
--- NOTE | 2016-10-25 07:50 | NUR ---
VS WITHIN NORMAL RANGE. BP WAS SLIGHTLY HIGH: 153/104, O2 SAT WELL AT 96% ON RA. SKIN INTACT. PT HAS BILATERAL MITTENS. PT AWAKE AND ORIENTED X2. PT COOPERATIVE. ATE 15% OF BREAKFAST. CLEANED AND CHANGED PT.
[2016-10-25 08:00] VITALS: BP 153/104
[2016-10-25] MEDS: FERROUS SULFATE 325 MG TABEC PO SCH (09:04)
[2016-10-25] MEDS: metFORMIN 500 MG TAB PO SCH ×2 (09:04→17:56)
[2016-10-25] MEDS: ECOTRIN 81 MG TABEC PO SCH (09:04)
[2016-10-25] MEDS: LACTOBACILLUS RHAMNOSUS GG 1 EACH CAP PO SCH (09:04)
--- NOTE | 2016-10-25 09:05 | NUR ---
ADMINISTERED MORNING MEDS, CRUSHED IN PUDDING, PT TOLERATED WELL. WILL CONTINUE TO MONITOR.
--- NOTE | 2016-10-25 10:35 | NUR ---
PT BECOMING MORE AGITATED, TRYING TO REMOVE MITTENS. ADMINISTERED ATIVAN ORDERED. PT TOLERATED WELL. PT RESTING COMFORTABLY. WILL CONTINUE TO MONITOR.
--- NOTE | 2016-10-25 11:30 | NUR ---
SON AND NEIGHBOR/CAREGIVER CAME AND VISITED WITH PT. WONDERED HOW HE WAS DOING. BETTER AFTER ATIVAN. GAVE SOME UPDATES. ANSWERED ALL QUESTIONS. WILL CONTINUE TO MONITOR PT.
[2016-10-25 12:00] VITALS: BP 149/97
[2016-10-25] MEDS: DEXT 5% / NACL 0.45% 1,000 ML IV SCH (12:45)
--- NOTE | 2016-10-25 13:25 | NUR ---
PT RESTING COMFORTABLY. WILL CONTINUE TO MONITOR PT.
--- NOTE | 2016-10-25 15:40 | NUR ---
PT TEMP 99.7F, TEMPORAL. STARTED COOLING MEASURES. ICE PACK UNDER ARMS. TURNED UP THE AC IN THE ROOM. WILL CONTINUE TO MONITOR. R/T IS HERE TO ADMINISTER BREATHING TX.
[2016-10-25 16:00] VITALS: BP 123/84
--- NOTE | 2016-10-25 18:15 | NUR ---
CARTON MAKER FED PT DINNER. PT ATE 15% OF DINNER. TOLERATED WELL. WILL CONTINUE TO MONITOR PT.
--- NOTE | 2016-10-25 19:28 | NUR ---
RECEIVED REPORT FROM TANIYA ORR AT BEDSIDE. PT IS ALERT, AWAKE ORIENTED X2 WITH CONFUSION. PT IS VERY AGITATED AND COMBATIVE. PULLING OUT IV LINES AND MONITOR AND HITTING STAFF. GIVEN PRN MEDICATION FOR AGITATION ORDERED. NO S/S OF RESPIRATORY DISTRESS OR SOB NOTED. PLAN OF CARE REVIEWED TO PT BUT UNABLE TO COMPREHEND. CALL LIGHT WITHIN REACH. WILL CONTINUE TO MONITOR.
--- NOTE | 2016-10-25 19:28 | NUR ---
ENDORSED PT TO CUSTOM FEED MILL OPERATOR NURSE AT BEDSIDE FOR CONTINUITY OF CARE. PT IN STABLE CONDITION.
[2016-10-25 20:00] VITALS: BP 135/89
[2016-10-25] MEDS: FAMOTIDINE 20 MG/2 ML VIAL IV SCH (20:22)
[2016-10-25] MEDS: QUEtiapine FUMARATE 25 MG TAB PO SCH (20:22)
[2016-10-25] MEDS: SIMVASTATIN 10 MG TAB PO SCH (20:23)
[2016-10-26] VITALS: BP_SYST 135; BP_SYST 145; BP_DIAS 76; BP_DIAS 89
[2016-10-26] MEDS: PIPER/TAZO 3.375GM/D5W PREMIX 50 ML IV SCH ×4 (00:48→18:01)
[2016-10-26] MEDS: ALBUTEROL SULFATE/IPRATROPIU 3 ML SOL IH SCH ×6 (03:07→23:44)
[2016-10-26] MEDS: LORazepam 2 MG/ML VIAL IM/IVP PRN ×2 (03:32→13:53)
[2016-10-26 04:00] VITALS: BP 128/73
--- NOTE | 2016-10-26 05:00 | NUR ---
AM CARE RENDERED. BED LINEN CHANGED. REPOSITIONED PATIENT. KEPT CLEAN AND DRY. CALL LIGHT WITHIN REACH. WILL CONTINUE TO MONITOR.
[2016-10-26 05:57] LABS: BASOPHILS % (AUTO) 0.4 % (0.0-2.0); EOSINOPHILS # (AUTO) 0.2 K/uL (0-0.4); EOSINOPHILS % (AUTO) 2.4 % (0.0-4.0); HEMATOCRIT 35.6 % (36-52); HEMOGLOBIN 11.5 g/dL (12.0-18.0); LYMPHOCYTES # (AUTO) 0.9 K/uL (2.0-11.5); LYMPHOCYTES % (AUTO) 10.6 % (20.5-51.1); MEAN CORPUSCULAR HEMOGLOBIN 26 pg (27-31); MEAN CORPUSCULAR HGB CONC 32 g/dL (33-37); MEAN CORPUSCULAR VOLUME 79 fL (80-94); MONOCYTES # (AUTO) 1.6 K/uL (0.8-1.0); MONOCYTES % (AUTO) 19.3 % (1.7-9.3); NEUTROPHILS # (AUTO) 5.6 K/uL (1.8-7.7); NEUTROPHILS % (AUTO) 67.3 % (42.2-75.2); PLATELET COUNT (AUTO) 294 K/uL (140-450); RED BLOOD CELL COUNT(AUTO) 4.49 MIL/uL (4.20-6.10); WHITE BLOOD COUNT (AUTO) 8.3 K/uL (4.8-10.8)
[2016-10-26] MEDS: BLOOD GLUCOSE MONITORING 1 DEV DEV FS SCH ×4 (06:27→20:59)
[2016-10-26 06:40] LABS: ANION GAP 11.3 (8-16); CALCIUM 8.7 mg/dL (8.5-10.1); CARBON DIOXIDE 28.9 mmol/L (21-32); CHLORIDE 105 mmol/L (98-107); CREATININE 1.7 mg/dL (0.6-1.3); GLUCOSE 131 mg/dL (74-106); POTASSIUM 3.2 mmol/L (3.5-5.1); SODIUM SERUM 142 mmol/L (136-145); UREA NITROGEN, BLOOD 11 mg/dL (7-18)
[2016-10-26 06:48] LABS: MAGNESIUM 2.3 mg/dL (1.8-2.4)
--- NOTE | 2016-10-26 07:30 | NUR ---
PT HAS NO S/S OF ANY DISCOMFORT. PLAN OF CARE ENDORSE TO TANIYA ORR AT BEDSIDE FOR CONTINUITY OF CARE.
--- NOTE | 2016-10-26 07:31 | NUR ---
RECEIVED PT TO THE DATA ASSISTANT NURSE AT BEDSIDE FOR CONTINUITY OF CARE. PT IS SLEEPING SOUNDLY. NO SIGNS OF DISTRESS. V/S WITHIN NORMAL RANGE. PT IS WEARING NC 2L O2, SATURATING AT 92%. K IS LOW AT 3.2 AND PHOS IS HIGH AT 5.0. NOTIFIED GEISE TEAM. MITTENS STILL IN PLACE. 2 IV'S L AND R FA 20G, R INFUSING D5 1/2 NS 50ML. PER DATA ASSISTANT, PT WAS GIVEN ATIVAN AT 0400. WILL CONTINUE TO MONITOR PT.
[2016-10-26 08:00] VITALS: BP 123/76
--- NOTE | 2016-10-26 08:40 | NUR ---
PT IS HARD TO AROUSE. HE IS IN DEEP SLEEP. EVEN WITH STERNAL RUB, PT WILL NOT OPEN EYES. O2 SATING IN MID TO LOW 80'S. WILL CALL R/T. NC WAS OFF AND READMINISTERED WITH O2 INCREASED TO 4L. SAT HIM UP FOR MEDS. O2 INCREASED TO 94%. WILL NOT GIVE MORNING MEDS D/T PT NOT WAKING UP AND NOT ALERT ENOUGH TO SWALLOWING AND FOLLOW COMMANDS. WILL CONTINUE TO MONITOR PT.
--- NOTE | 2016-10-26 08:50 | NUR ---
WAS INFORMED BY NURSE MONAHAN THAT PT SPO2 DROPPED TO MID 80'S AND NURSE PLACED PT BACK ON NASAL CANNULA. WILL CONTINUE TO MONITOR.
[2016-10-26] MEDS: FERROUS SULFATE 325 MG TABEC PO SCH (09:00)
[2016-10-26] MEDS: LACTOBACILLUS RHAMNOSUS GG 1 EACH CAP PO SCH (09:00)
[2016-10-26] MEDS: ECOTRIN 81 MG TABEC PO SCH (09:00)
--- NOTE | 2016-10-26 09:10 | NUR ---
SON STOPPED BY. WILL LEAVE AND COME BACK TOMORROW SINCE HE IS SLEEPING.
--- NOTE | 2016-10-26 09:59 | NUR ---
PT STILL SLEEPING, SEMI SAHU'S. DR. CHRISTENSEN TEAM SAW PT EARLIER. O2 AT 4L AND SATURATING AT 96%. WILL CONTINUE TO MONITOR PT.
--- NOTE | 2016-10-26 11:37 | NUR ---
NASAL CANNULA DECREASED TO 2L SPO2 95%. PT NOT SOB AND NOT IN RESPIRATORY DISTRESS AT THIS TIME.
[2016-10-26 12:00] VITALS: BP 114/71
--- NOTE | 2016-10-26 12:03 | NUR ---
PT SLEEPING. NO SIGNS OF DISCOMFORT. BREATHING IS BETTER BUT STILL BREATHING THROUGH MOUTH. O2 SAT IS BETTER AT 96%.
[2016-10-26] MEDS: DEXT 5% / NACL 0.45% 1,000 ML IV SCH (13:09)
--- NOTE | 2016-10-26 13:15 | NUR ---
PT NOTES CHART REVIEWED AND NOT CLEARED FOR PT BY RN D/T BEING LETHARGIC AND UNABLE TO ACTIVELY PARTICIPATE IN THERAPY TODAY, WILL FOLLOW UP PATIENT TOMORROW IF POSSIBLE. CALL LIGHT IN REACH. RN AWARE. PVEx1 Addendum: 10/26/16 at 1552 by Taryn Banks PT PHYSICAL THERAPY CO-SIGN The Physical Therapy Progress Notes documented by Supervisor Shed Workers have been reviewed. Reviewed/Co-Signed by: Taryn Banks PT Documentation Done by:ANGEL HEATH PTA
--- NOTE | 2016-10-26 13:30 | NUR ---
PT STILL SLEEPING BUT HE IS WAKING UP WHEN CALLED, MORE AROUSABLE. ASKED IF HE WANTED TO EAT OR DRINK ANYTHING, PT SAID NO. WILL CONTINUE TO MONITOR PT.
--- NOTE | 2016-10-26 14:00 | NUR ---
PT FINALLY WIDE AWAKE. UPSET AND FRUSTRATED AND COMBATIVE. PT TRIED TO KICK ME BECAUSE I WOULDN'T TAKE THE MITTENS OFF AND WOULDN'T LET HIM GET OUT OF BED. GAVE A DOSE OF ATIVAN TO CALM HIM DOWN. D/T BEING SO FLUSTERED, HIS O2 SAT WENT DOWN TO LOW 80'S AND HIGH 70'S. INCREASED THE O2 TO 4L. AFTER THE ATIVAN, PT BACK TO 92%. EVERY TIME HE STRUGGLES WITH THE MITTENS OR GETS UPSET, PT DE-SATS. CHARTING IN ROOM, MONITORING PT CLOSELY.
--- NOTE | 2016-10-26 15:32 | NUR ---
SS NOTE: I SPOKE WITH PT'S SON, KARISSA REGARDING PT'S POSSIBLE D/C PLAN TO SNF. I INFORMED HIM THAT PT IS IN HIS MEDICARE CO-SNF DAYS. KARISAS STATED THAT HE DOES NOT WANT PT TO GO TO [facility] OR [facility]. HE ALSO STATED THAT HE WILL NOT BE ABLE TO PAY FOR PT'S MEDICARE SNF CO-PAYS. HE REPORTED THAT HE IS IN AGREEMENT WITH PT GOING TO A SNF THAT WOULD BE WILLING TO WAIVE PT'S CO-PAYS.
--- NOTE | 2016-10-26 15:39 | NUR ---
PT RESTING COMFORTABLY. R/T WAS HERE FOR BREATHING TREATMENT. FIRE APPARATUS SPRINKLER INSPECTOR CAME AND CLEANED AND REPOSITIONED THE PT. WILL CONTINUE TO MONITOR.
[2016-10-26 16:00] VITALS: BP 123/85
--- NOTE | 2016-10-26 17:51 | NUR ---
PT SLEEPING. REFUSED DINNER. NO SIGNS OF DISTRESS. WILL CONTINUE TO MONITOR PT.
--- NOTE | 2016-10-26 19:15 | NUR ---
ENDORSED PT TO THE NIGHTSHIFT NURSE AT BEDSIDE FOR CONTINUITY OF CARE. PT IS IN STABLE CONDITION. Addendum: 10/26/16 at 1941 by Glenny Damico RN PT'S IV ON R FA INFILTRATED. REMOVED IV. PT TOLERATED WELL. NOW TO USE L ARM IV.
--- NOTE | 2016-10-26 19:16 | NUR ---
RECEIVED PT FROM TANIYA ORR PT IS AAOX1 CONFUSED BUT FOLLOW COMMANDS ON 06 11 LTS VIA NC NOT SOB NOTED ON TELEMETRY ST AND FREQ PVC'S IV ON RT FA INFILTRATED WAS REMOVED AND HL ON LEFT FA INFILTRATED TOO WAS REMOVED AND A NEW IV ACCESS ON LEFT UPPER ARM GAUGE # 22 PT REPOSITONED INITIAL ASSESSMENT DONE
[2016-10-26 20:00] VITALS: BP 124/74
[2016-10-26] MEDS: QUEtiapine FUMARATE 25 MG TAB PO SCH (20:57)
[2016-10-26] MEDS: SIMVASTATIN 10 MG TAB PO SCH (20:58)
[2016-10-26] MEDS: FAMOTIDINE 20 MG/2 ML VIAL IV SCH (20:59)
[2016-10-26] MEDS: HALOPERIDOL IM 5 MG/ML VIAL IM PRN (21:51)
--- NOTE | 2016-10-26 21:51 | NUR ---
PT COMBATIVE TRYING TO GET OUT OF BED HALDOL GIVEN ORDER ST ON TELEMETRY
--- NOTE | 2016-10-26 23:00 | NUR ---
DR HUTCHINSON CATTLE AND WHEAT FARMER FOR DR CHRISTENSEN WAS CALL TO NOTIFY PT HEART RATE AND PT CONDITION
[2016-10-27] VITALS: BP 125/83
--- NOTE | 2016-10-27 | NUR ---
I CALL BACK DR HUTCHINSON FOR ORDER Y SAID HE WILL PUT THE ORDER FOR HIGH HEART RATE.
[2016-10-27] MEDS: PIPER/TAZO 3.375GM/D5W PREMIX 50 ML IV SCH ×2 (00:14→05:25)
[2016-10-27] MEDS: METOPROLOL 25 MG TAB PO SCH ×4 (00:15→20:32)
[2016-10-27] MEDS ORDERED: LORazepam 2 MG/ML VIAL IM/IVP PRN (00:20)
[2016-10-27] MEDS ORDERED: METOPROLOL 5 MG/5 ML VIAL IV ONE (00:20)
--- NOTE | 2016-10-27 00:39 | NUR ---
METOPROLOL 12.5 MG PO GIVEN ORDER ONLINE EDITOR VITOR ARGUELLO
[2016-10-27] MEDS ORDERED: METOPROLOL 25 MG TAB ONE (00:40)
[2016-10-27] MEDS ORDERED: LORazepam 2 MG/ML VIAL ONE (00:41)
--- NOTE | 2016-10-27 01:35 | NUR ---
METOPROLOL IV WAS NOT GIVEN BECAUSE BP 107/57 AND PT SLEEPING NOT ATIVAN GIVEN AT THIS TIME
--- NOTE | 2016-10-27 01:39 | NUR ---
PT ON TELMETRY ST GOING DOWN HR 111 AND PT SLEEPING NOT ATIVAN GIVEN
--- NOTE | 2016-10-27 02:42 | NUR ---
PT SLEEPING REPOSITIONED Q2H HR 100 ON TELEMETRY NOT DISTRESS NOTED AT THIS TIME
[2016-10-27] MEDS: ALBUTEROL SULFATE/IPRATROPIU 3 ML SOL IH SCH ×6 (03:08→23:29)
[2016-10-27] MEDS: DEXT 5% / NACL 0.45% 1,000 ML IV SCH ×2 (03:15→10:44)
[2016-10-27 04:00] VITALS: BP 129/68
--- NOTE | 2016-10-27 04:37 | NUR ---
SPONGE BATH GIVEN, LINEN CHANGED ON TELEMETRY ST REPOSITIONED ON 2 LTS VIA NC, PT CONFUSED
--- NOTE | 2016-10-27 05:35 | NUR ---
PT CONFUSED TRYING TO GET OUT OF BED
--- NOTE | 2016-10-27 06:24 | NUR ---
PT CONFUSED AND COMBATIVE LINEN CHANGED AND RESTRAIN NON BEH ONAVIORAL PRN
--- NOTE | 2016-10-27 06:26 | NUR ---
HR 92 PT GETTING SLEEP 02 SAT 92
[2016-10-27] MEDS: BLOOD GLUCOSE MONITORING 1 DEV DEV FS SCH ×4 (06:28→20:11)
--- NOTE | 2016-10-27 07:15 | NUR ---
RECEIVED REPORT FROM HOSPITAL MONITOR RN AT BEDSIDE. PT IS CONFUSED, MUMBLES WORDS. BREATHING EVEN AND UNLABORED. FLACC 0. LEFT UPPER ARM IV ACCESS 22G INTACT AND PATENT WITH IVF INFUSING @ 50 ML/HR. SAFETY MEASURES MAINTAINED. BED IN LOW POSITION. CALL LIGHT WITHIN REACH.
[2016-10-27 08:00] VITALS: BP 127/69
[2016-10-27] MEDS: ECOTRIN 81 MG TABEC PO SCH (08:35)
[2016-10-27] MEDS: FERROUS SULFATE 325 MG TABEC PO SCH (08:35)
[2016-10-27] MEDS: LACTOBACILLUS RHAMNOSUS GG 1 EACH CAP PO SCH (08:36)
--- NOTE | 2016-10-27 08:48 | NUR ---
SCHEDULED DUE PO MEDS GIVEN ORDERED AND TOLERATED WELL BY PT WITHOUT ANY DIFFICULTIES.
--- NOTE | 2016-10-27 09:09 | NUR ---
EULOGIO REPORTED TO DR GILLESPIE
[2016-10-27] MEDS ORDERED: QUEtiapine FUMARATE 25 MG TAB PO SCH (09:10)
[2016-10-27 10:35] LABS: ANION GAP 11.2 (8-16); CALCIUM 8.8 mg/dL (8.5-10.1); CARBON DIOXIDE 28.9 mmol/L (21-32); CHLORIDE 104 mmol/L (98-107); CREATININE 2.1 mg/dL (0.6-1.3); GLUCOSE 115 mg/dL (74-106); POTASSIUM 3.1 mmol/L (3.5-5.1); SODIUM SERUM 141 mmol/L (136-145); UREA NITROGEN, BLOOD 15 mg/dL (7-18)
[2016-10-27 10:43] LABS: BASOPHILS # (AUTO) 0.1 K/uL (0.00-0.22); BASOPHILS % (AUTO) 1.3 % (0.0-2.0); EOSINOPHILS # (AUTO) 0.3 K/uL (0-0.4); EOSINOPHILS % (AUTO) 3.9 % (0.0-4.0); HEMATOCRIT 34.8 % (36-52); HEMOGLOBIN 11.3 g/dL (12.0-18.0); LYMPHOCYTES # (AUTO) 0.9 K/uL (2.0-11.5); LYMPHOCYTES % (AUTO) 10.9 % (20.5-51.1); MEAN CORPUSCULAR HEMOGLOBIN 26 pg (27-31); MEAN CORPUSCULAR HGB CONC 33 g/dL (33-37); MEAN CORPUSCULAR VOLUME 79 fL (80-94); MONOCYTES # (AUTO) 1.5 K/uL (0.8-1.0); MONOCYTES % (AUTO) 19.8 % (1.7-9.3); NEUTROPHILS % (AUTO) 64.1 % (42.2-75.2); PLATELET COUNT (AUTO) 311 K/uL (140-450); RED BLOOD CELL COUNT(AUTO) 4.39 MIL/uL (4.20-6.10); RED CELL DISTRIBUTION WIDTH 14.5 % (11.6-13.7); WHITE BLOOD COUNT (AUTO) 7.8 K/uL (4.8-10.8)
--- NOTE | 2016-10-27 11:15 | NUR ---
10/27/16 RD INITIAL ASSESSMENT COMPLETED PLEASE REFER TO NUTRITION ASSESSMENT UNDER CARE ACTIVITY FOR ESTIMATED NUTRITIONAL NEEDS. 1. CONTINUE 60 G CONSISTENT CARBOHYDRATE DIET, GROUND DIET + GLUCERNA TID 2. RD TO FOLLOW-UP 2-3 DAYS; HIGH RISK BLAKE TORRES, NICK
--- NOTE | 2016-10-27 11:16 | NUR ---
SS NOTE: PER SHAHRZAD FROM [facility], THEY MAY BE ABLE TO ACCEPT PT BUT THEY WILL SEND THEIR CASHIER TUBE ROOM TO ASSESS PT FIRST. PER KWASI FROM [facility], THEY MAY BE ABLE TO ACCEPT PT IF PT IS OFF THE RESTRAINTS AND HAS AN APPROPRIATE DIAGNOSIS IF PT WILL CONTINUE TO NEED HALDOL PER ESTHER FROM [facility], THEY ARE UNABLE TO ACCEPT PT
--- NOTE | 2016-10-27 11:30 | NUR ---
BLOOD SUGAR: 123 MG/DL. NO INSULIN COVERAGE NEEDED.
[2016-10-27 12:00] VITALS: BP 119/74
[2016-10-27] MEDS: HALOPERIDOL IM 5 MG/ML VIAL IM PRN ×2 (12:04→23:12)
[2016-10-27] MEDS: PIPER/TAZO 2.25GM/D5W PREMIX 50 ML IV SCH ×2 (12:37→17:17)
--- NOTE | 2016-10-27 15:14 | NUR ---
X-RAY TECH IN FOR LEFT ELBOW COMPLETE.
--- NOTE | 2016-10-27 15:35 | NUR ---
CHART REVIEW DONE. FOR XRAY ELBOW.
[2016-10-27 16:00] VITALS: BP 152/86
--- NOTE | 2016-10-27 16:30 | NUR ---
BLOOD SUGAR: 108 MG/DL. NO INSULIN COVERAGE NEEDED.
[2016-10-27] MEDS: diphenhydrAMINE 50 MG/ML VIAL IVP PRN (16:50)
--- NOTE | 2016-10-27 18:00 | NUR ---
SON, KARISSA, VISITED PT AT BEDSIDE.
--- NOTE | 2016-10-27 19:30 | NUR ---
RECEIVED REPORT FROM DAY RN AT BEDSIDE, PATIENT IS AAOX2, RESTLESS AND CONFUSED, PATIENT SEEN TRYING TO GET OUT OF BED, PATIENT HAS IV TO LFA PATENT AND INTACT, MULTIPLE BRUISED NOTED TO BODY. PATIENT DOES NOT APPEAR TO BE IN PAIN, FLACC 0. DISCUSSED PLAN OF CARE WITH PATIENT, PATIENT UNABLE TO VERBALIZE UNDERSTANDING. SAFETY MEASURES CHECKED, SIDE RAILS UP, BED ALARM ON, WILL CONTINUE TO CLOSELY MONITOR.
--- NOTE | 2016-10-27 19:30 | NUR ---
ENDORSED REPORT AT BEDSIDE TO BENZOL STILL OPERATOR RN FOR CONTINUITY OF CARE.
[2016-10-27] MEDS: POTASSIUM CHLORIDE 10 MEQ TABER PO SCH ×2 (19:35→20:10)
[2016-10-27 20:00] VITALS: BP 151/98
[2016-10-27] MEDS: QUEtiapine FUMARATE 25 MG TAB PO SCH ×2 (20:00→20:10)
[2016-10-27] MEDS: SIMVASTATIN 10 MG TAB PO SCH ×2 (20:10→20:32)
[2016-10-27] MEDS: FAMOTIDINE 20 MG/2 ML VIAL IV SCH (20:11)
--- NOTE | 2016-10-27 20:33 | NUR ---
PAGED DR HUTCHINSON, PATIENT REFUSED TO TAKE PO MEDICATIONS, PATIENTS POTASSIUM LEVEL 3.1 REFUSED PO POTASSIUM, NOTIFIED MD TAMIA STATED HE WILL PUT IN ORDERS FOR IV POTASSIUM, ALSO LET MD KNOW PATIENTS BP ELEVATED AND ONLY HAS PO BP MEDS. WILL FOLLOW UP WITH ORDERS.
[2016-10-27] MEDS ORDERED: POTASSIUM CHLORIDE 40 MEQ, LIDOCAINE 1% 25 MG in NACL 0.9% 250 ML IV ONE (20:35)
--- NOTE | 2016-10-27 22:30 | NUR ---
PATIENT REMOVED IV TIP INTACT, NEW IV STARTED TO LFA 22G PATENT AND INTACT, PATIENT TOLERATED WELL.
--- NOTE | 2016-10-27 23:21 | NUR ---
PATIENT AGITATED AND RESTLESS, ADMINISTERED HALDOL PER MD ORDER. WILL CONTINUE TO MONITOR. VITALS STABLE
[2016-10-28] VITALS: BP 125/73
[2016-10-28] MEDS: PIPER/TAZO 2.25GM/D5W PREMIX 50 ML IV SCH ×4 (00:06→17:11)
--- NOTE | 2016-10-28 00:13 | NUR ---
PATIENT WAS TRYING TO GET OUT OF BED, ENCOURAGED PT TO GET BACK IN AND GO TO SLEEP, PATIENT COMPLIED AND NOW SLEEPING COMFORTABLE. WILL CONTINUE TO CLOSELY MONITOR.
--- NOTE | 2016-10-28 01:00 | NUR ---
PATIENT SCRATCHING AT SKIN AND KEEPS REMOVING OXYGEN, APPLIED MITTENS TO PATIENT, WILL CONTINUE TO CLOSELY MONITOR.
[2016-10-28] MEDS: diphenhydrAMINE 50 MG/ML VIAL IVP PRN (01:07)
--- NOTE | 2016-10-28 03:18 | NUR ---
PATIENT KEEP TRYING TO GET OUT OF BED, PUT PATIENT BACK IN BED, BED ALARM ON , WILL CONTINUE TO CLOSELY MONITOR.
[2016-10-28] MEDS: ALBUTEROL SULFATE/IPRATROPIU 3 ML SOL IH SCH ×6 (03:42→22:55)
[2016-10-28 04:00] VITALS: BP 155/88
[2016-10-28] MEDS: DEXT 5% / NACL 0.45% 1,000 ML IV SCH ×2 (04:19→17:11)
--- NOTE | 2016-10-28 04:33 | NUR ---
PATIENT SLEEPING, NO SIGN OF DISTRESS, WILL CONTINUE TO CLOSELY MONITOR
[2016-10-28 06:17] LABS: HEMATOCRIT 35.3 % (36-52); HEMOGLOBIN 11.6 g/dL (12.0-18.0); MEAN CORPUSCULAR HEMOGLOBIN 26 pg (27-31); MEAN CORPUSCULAR HGB CONC 33 g/dL (33-37); MEAN CORPUSCULAR VOLUME 79 fL (80-94); PLATELET COUNT (AUTO) 299 K/uL (140-450); RED BLOOD CELL COUNT(AUTO) 4.45 MIL/uL (4.20-6.10); WHITE BLOOD COUNT (AUTO) 7.9 K/uL (4.8-10.8)
[2016-10-28] MEDS: BLOOD GLUCOSE MONITORING 1 DEV DEV FS SCH ×4 (06:47→21:29)
[2016-10-28 06:59] LABS: ANION GAP 16.1 (8-16); CALCIUM 8.6 mg/dL (8.5-10.1); CARBON DIOXIDE 23.5 mmol/L (21-32); CHLORIDE 107 mmol/L (98-107); CREATININE 1.7 mg/dL (0.6-1.3); GLUCOSE 140 mg/dL (74-106); POTASSIUM 3.6 mmol/L (3.5-5.1); SODIUM SERUM 143 mmol/L (136-145); UREA NITROGEN, BLOOD 15 mg/dL (7-18)
--- NOTE | 2016-10-28 07:15 | NUR ---
ENDORSED PATIENT TO DAY RN AT BEDSIDE, PATIENT RESTING COMFORTABLE IN BED, IN STABLE CONDITION
[2016-10-28 07:19] LABS: EOSINOPHILS % (MANUAL) 5 % (0-4); LYMPHOCYTES % (MANUAL) 8 % (20-46); MONOCYTES % (MANUAL) 13 % (5-12); NEUTROPHILS % (MANUAL) 74 (43-65); PLATELET ESTIMATE ADEQUATE
--- NOTE | 2016-10-28 07:25 | NUR ---
RECEIVED PT IN BED. AWAKE, ALERT ORIENTED X1. NO SOB NOTED AT THIS TIME. ON 02 AT 2LPM VIA NC. NO SIGNS AND SYMPTOMS OF ACUTE PAIN OR DISCOMFORT NOTED AT THIS TIME. POSITIVE BOWEL SOUNDS NOTED ON FOUR QUADRANTS. PT INCONTINENT. ON BEDREST. SAFETY PRECAUTION IN PLACE. CALL LIGHT WITHIN REACH.
[2016-10-28 08:00] VITALS: BP 127/70
--- NOTE | 2016-10-28 08:00 | NUR ---
GETTING PT'S VITAL SIGNS, PT AGITATED KEPT ON GETTING OUT OF BED. DR. CHRISTENSEN DOING HIS ROUNDS AND AWARE. PT COMBATIVE. UNCOOPERATIVE.
[2016-10-28] MEDS ORDERED: DONEPEZIL 10 MG TAB PO SCH ×2 (08:25→21:00)
[2016-10-28] MEDS: HALOPERIDOL IM 5 MG/ML VIAL IM PRN (08:40)
[2016-10-28] MEDS: LACTOBACILLUS RHAMNOSUS GG 1 EACH CAP PO SCH (08:42)
[2016-10-28] MEDS: FERROUS SULFATE 325 MG TABEC PO SCH (08:42)
[2016-10-28] MEDS: ECOTRIN 81 MG TABEC PO SCH (08:42)
[2016-10-28] MEDS: METOPROLOL 25 MG TAB PO SCH ×2 (08:43→21:25)
[2016-10-28] MEDS: DOCUSATE SODIUM 100 MG GELCAP PO SCH ×2 (08:57→21:24)
[2016-10-28] MEDS: ARIPiprazole 10 MG TAB PO SCH (08:57)
[2016-10-28] MEDS ORDERED: SERTRALINE 50 MG TAB PO SCH (09:00)
[2016-10-28] MEDS ORDERED: QUEtiapine FUMARATE 25 MG TAB PO SCH ×3 (09:00→20:00)
--- NOTE | 2016-10-28 09:53 | NUR ---
SS NOTE: PER SHAHRZAD FROM [facility], THEY ARE NO LONGER ABLE TO ACCEPT PT
--- NOTE | 2016-10-28 10:31 | NUR ---
PT IS VERY COMBATIVE WONT LET ANY STAFF TOUCH HIM RN ADDIE WAS AT BEDSIDE AND NOTIFIED OF PT'S STATUS WILL NOT ALLOW OXYGEN TO BE PLACED BACK ON
--- NOTE | 2016-10-28 11:57 | NUR ---
DR. CARROLL ORDERED ABG FOR PT BUT PT IS REAL COMBATIVE NOTIFIED DR. CARROLL AND HE SAID TO NOT TO DO ABG
[2016-10-28 12:00] VITALS: BP 156/105
--- NOTE | 2016-10-28 13:46 | NUR ---
PT UP IN CHAIR PER PT. JOHN HANCOCK CAME TO SEE PT. PT CALM AT THIS TIME, IN CHAIR FALLING ASLEEP. NO AGITATION NOTED AT THIS TIME. PT LISTENS TO JOHN HANCOCK.
--- NOTE | 2016-10-28 14:00 | NUR ---
PT FALLING ASLEEP IN CHAIR. PHYSICAL THERAPIST CAME TO PUT PT BACK IN BED. PT CALM RIGHT NOW. FAMILY AT BEDSIDE.
--- NOTE | 2016-10-28 14:32 | NUR ---
SS NOTE: I SPOKE WITH PT'S SON, KARISSA AND PT'S NEIGHBOR/FRIEND, SHU REGARDING SNF PLACEMENT. KARISSA WAS AWARE THAT PT NEEDED TO BE MORE STABILIZED BEFORE TRANSFERRING TO A SNF. HE IS IN AGREEMENT WITH PT GOING TO [facility] UPON DISCHARGE IF THEY ARE ABLE TO ACCEPT HIM.
--- NOTE | 2016-10-28 14:54 | NUR ---
PT IN BED. ASLEEP. NO SOB NOTED. NO SIGNS AND SYMPTOMS OF ACUTE PAIN OR DISTRESS NOTED AT THIS TIME. PT KEPT CLEAN, DRY AND COMFORTABLE, NEEDS ATTENDED.
[2016-10-28 16:00] VITALS: BP 151/77
--- NOTE | 2016-10-28 16:33 | NUR ---
* ST NOTE * Pt seen at bedside with caregivers/OPTICS TEST TECHNICIAN and caregivers/Nsg present. Bedside dysphagia and oral mechanism exams completed. See evaluation report for further details. Pt tolerating 1/2 alternating PO trials of regular solid saltine crackers w/out s/s of aspiration but expelling 2nd bolus secondary to difficulty masticating as well as pt spontaneously stating he does not want to eat at this time after verbally agreeing to engage in therapeutic feeding trials at beginning of evaluation. Pt then tolerating 3/3 alternating PO trials of thin liquid water via a cup w/out s/s of aspiration. Pt currently unable to accept liquids through a straw secondary to decreased cognitive function/AMS. Pt and caregiver/medical billing manager education completed regarding safe swallow compensatory strategies pt and caregivers/nsg could employ to aid pt with swallow function as well as to clear oral cavity of residue/pocketed food during and after PO intake, with pt appearing increasingly agitated and with caregivers/medical billing manager verbalizing understanding of clinician's recommendations. It is thus recommended pt's PO diet consistency be downgraded to puree textures with thin liquids for all meals at this time secondary to poor dentition, difficulty masticating regular solids, nsg's reports of pt demonstrating difficulty with m/s textures, and due to pt's AMS. It is also recommended pt receive close supervision during PO intake to assure strict aspiration precautions are in place secondary to pt's AMS as well as to assist pt with feeding. No further ST follow up recommended at this time. Pt and caregivers/nsg education completed regarding results of evaluation; benefits of abiding by aspiration precautions and recommended PO diet consistency; and prognosis for improvement; with pt indifferent to clinician's recommendations secondary to AMS and caregivers/nsg agreeable with and verbalizing understanding of clinician's recommendations. Recommend: - PO diet consistency of Puree textures with Thin liquids for all meals - Close supervision during PO intake by caregivers/staff/family to assure strict aspiration precautions are in place secondary to pt's AMS - Pt requires assistance with feeding - Nsg may downgrade liquid diet consistency to nectar-thickened liquids if pt is not tolerating thin liquids No further ST follow up recommended at this time. G8996 CK G8997 CJ G8998 CJ NOMS Level 3 Time In/Out 15:35 - 16:20
[2016-10-28] MEDS: INSULIN LISPRO SLIDING SCALE 100 UNITS/ML VIAL SUBQ PRN ×2 (16:54→21:31)
--- NOTE | 2016-10-28 17:53 | NUR ---
PT KEEPS ON GETTING OUT OF BED. CONFUSION NOTED. TRIES TO KICK/ PUNCH STAFF WHEN CHANGING HIM. CALLED TORSION SPRING COILING MACHINE SETTER DR. HUTCHINSON, AND MADE AWARE. HE SAID THAT HE WILL PUT IN AN ORDER FOR RESTRAINTS.
--- NOTE | 2016-10-28 18:20 | NUR ---
DR. HUTCHINSON PUT IN AN ORDER FOR NON BEHAVIORAL RESTRAINTS: SOFT WRISTS. APPLIED TO PATIENT'S BOTH WRISTS. PT STILL COMBATIVE, REFUSES TO EAT, VERBALIZED IN SLURRED SPEECH THAT HE DOESN'T WANT TO EAT PER FINE CHEMICALS OPERATOR REPORT.
--- NOTE | 2016-10-28 19:28 | NUR ---
PT KEPT, CLEAN, DRY AND COMFORTABLE, NEEDS ATTENDED. PT ON BOTH WRIST SOFT RESTRAINTS. NO SOB NOTED. NO SIGNS AND SYMPTOMS OF ACUTE PAIN OR DISCOMFORT NOTED AT THIS TIME. PT ASLEEP AT THIS TIME. ON BED ALARM. ENDORSED TO NEXT SHIFT FOR CONTINUITY OF CARE PT ON STABLE CONDITION.
--- NOTE | 2016-10-28 19:29 | NUR ---
RECEIVED REPORT, ASSUMED CARE. PT AAOX2, ABLE TO MAKE SIMPLE NEEDS KNOWN BUT IS CONFUSED, MUMBLES TO SELF. RESPIRATION EVEN AND UNLABORED,NO SOB, NO S/S RESPIRATORY DISTRESS. CONTINUE TO MONITOR DUE TO PNA. PT DENIES PAIN AT THIS TIME. IV ACCESS TO LT FA, GAUGE 22, NO S/S OF INFILTRATION AT THIS TIME. INFUSING D5 1/2 NS @ 30ML/HR, TOLERATING WELL. PT ON BILATERAL SOFT WRIST RESTRAINT, RELEASED PER PROTOCOL. NO SKIN BREAKDOWN NOTED AT THIS TIME. OFFERED WATER TOLERATED. CIRCULATION NOT COMPROMISED. DISCUSSED PLAN OF CARE. EDUCATED ABOUT SAFETY AND FALL PREVENTION. PT UNABLE TO VERBALIZE UNDERSTANDING. CALL LIGHT KEPT WITHIN EASY REACH. FALL PRECAUTION IN PLACE. BED ALARM IN PLACE TO ALERT STAFF OF MOBILITY. WILL CONTINUE TO MONITOR.
[2016-10-28 20:00] VITALS: BP 160/94
[2016-10-28] MEDS: SIMVASTATIN 10 MG TAB PO SCH (21:24)
[2016-10-28] MEDS: FAMOTIDINE 20 MG/2 ML VIAL IV SCH (21:25)
[2016-10-28] MEDS: DONEPEZIL 10 MG TAB PO SCH (21:25)
--- NOTE | 2016-10-28 21:31 | NUR ---
BLOOD SUGAR 170MG/DL, ADMINISTERED 2 UNITS OF HUMALOG PER SLIDING SCALE. ALL DUE PO MEDS ADMINISTERED. NO ADVERSE REACTION OBSERVED AT THIS TIME. PT KEPT CLEAN AND DRY, NO PRESSURE ULCER NOTED. REPOSITION Q2H TO PREVENT FROM SKIN BREAKDOWN. WILL CONTINUE TO MONITOR.
[2016-10-29] VITALS: BP 156/89
--- NOTE | 2016-10-29 00:12 | NUR ---
PT AWAKE AT THIS TIME, MUMBLING TO SELF AND TRYING TO GET OUT OF BED. PT VERY CONFUSED, NOT FOLLOWING REDIRECTIONS. BILATERAL SOFT WRIST RESTRAINT IN PLACE FOR SAFETY. RELEASED SCHEDULED. RESPIRATION EVEN AND UNLABORED, NO SOB, NO RESPIRATORY DISTRESS AT THIS TIME. DENIES PAIN AT THIS TIME. KEPT CLEAN AND DRY AT ALL TIMES. CIRCULATION NOT COMPROMISED. ROM PERFORMED. FLUIDS GIVEN TOLERATED. BED ALARM IN PLACE.WILL CONTINUE TO MONITOR. CALL LIGHT KEPT WITHIN EASY REACH.
[2016-10-29] MEDS: PIPER/TAZO 2.25GM/D5W PREMIX 50 ML IV SCH ×4 (00:13→17:01)
--- NOTE | 2016-10-29 02:27 | NUR ---
PT AWAKE, RESTLESS, CONFUSED, DISROBING AND TRYING TO GET OUT OF BED. REALITY ORIENTATION PROVIDED. PATIENT HAD A BM, CLEANED AND KEPT DRY. PT C/O BACK PAIN 09/16. ATTEMPTED TO MEDICATE WITH NORCO 5/325MG, HOWEVER, PT SPITS THE MEDICINE AND REFUSES TO OPEN HIS MOUTH. REPOSITIONED COMFORTABLY IN BED. FALL PRECAUTION IN PLACE AT ALL TIMES. WILL CONTINUE TO MONITOR.
[2016-10-29] MEDS: ALBUTEROL SULFATE/IPRATROPIU 3 ML SOL IH SCH ×6 (03:39→23:25)
[2016-10-29 04:00] VITALS: BP 142/89
--- NOTE | 2016-10-29 04:45 | NUR ---
PT REMAINS RESTLESS, OFFERED ANOTHER PAIN MEDS PT C/O LOW BACK PAIN AND WHOLE BODY THIS TIME 10/17. MORPHINE 2MG ORDERED. WILL CONTINUE TO MONITOR AND REASSESS FOR EFFECTIVENESS.
--- NOTE | 2016-10-29 05:15 | NUR ---
PT SOUND ASLEEP AT THIS TIME. NO S/S OF RESPIRATORY DISTRESS. FALL PRECAUTION OBSERVED. WILL CONTINUE TO MONITOR.
[2016-10-29 06:05] LABS: BASOPHILS # (AUTO) 0.2 K/uL (0.00-0.22); BASOPHILS % (AUTO) 1.3 % (0.0-2.0); EOSINOPHILS # (AUTO) 0.4 K/uL (0-0.4); EOSINOPHILS % (AUTO) 3.4 % (0.0-4.0); HEMATOCRIT 36.5 % (36-52); HEMOGLOBIN 11.7 g/dL (12.0-18.0); LYMPHOCYTES # (AUTO) 0.9 K/uL (2.0-11.5); LYMPHOCYTES % (AUTO) 7.7 % (20.5-51.1); MEAN CORPUSCULAR HEMOGLOBIN 26 pg (27-31); MEAN CORPUSCULAR HGB CONC 32 g/dL (33-37); MEAN CORPUSCULAR VOLUME 80 fL (80-94); MONOCYTES # (AUTO) 1.8 K/uL (0.8-1.0); MONOCYTES % (AUTO) 14.7 % (1.7-9.3); NEUTROPHILS # (AUTO) 8.6 K/uL (1.8-7.7); NEUTROPHILS % (AUTO) 72.9 % (42.2-75.2); PLATELET COUNT (AUTO) 392 K/uL (140-450); RED BLOOD CELL COUNT(AUTO) 4.59 MIL/uL (4.20-6.10); RED CELL DISTRIBUTION WIDTH 14.6 % (11.6-13.7)
[2016-10-29] MEDS: INSULIN LISPRO SLIDING SCALE 100 UNITS/ML VIAL SUBQ PRN ×2 (06:39→16:55)
[2016-10-29] MEDS: BLOOD GLUCOSE MONITORING 1 DEV DEV FS SCH ×4 (06:42→21:46)
[2016-10-29 06:44] LABS: ALANINE AMINOTRANSFERASE 24 U/L (12-78); ALKALINE PHOSPHATASE 93 U/L (46-116); ANION GAP 16.3 (8-16); ASPARTATE AMINOTRANSFERASE 48 U/L (15-37); CALCIUM 9.1 mg/dL (8.5-10.1); CHLORIDE 106 mmol/L (98-107); CREATININE 1.7 mg/dL (0.6-1.3); GLUCOSE 149 mg/dL (74-106); MAGNESIUM 2.1 mg/dL (1.8-2.4); PHOSPHORUS 3.3 mg/dL (2.5-4.9); POTASSIUM 3.3 mmol/L (3.5-5.1); SODIUM SERUM 144 mmol/L (136-145); TOTAL BILIRUBIN 0.8 mg/dL (0.0-1.0); TOTAL PROTEIN, SERUM 7.9 g/dL (6.4-8.2); UREA NITROGEN, BLOOD 17 mg/dL (7-18)
--- NOTE | 2016-10-29 07:20 | NUR ---
PT IN BED. ASLEEP. AROUSABLE TO VOICE. KEPT CLEAN DRY AND COMFORTABLE. NEEDS ATTENDED. SAFETY PRECAUTION MAINTAINED. PT ON STABLE CONDITION. ENDORSED TO FRAME FIXER REGARDING CALL FOR RESIDENT DR. ROCA REGARDING RESTRAINT ORDER. IF ZACHERY MORALES WON'T WORK. ENDORSED TO FRAME FIXER FOR CONTINUITY OF CARE. Addendum: 10/29/16 at 2004 by Sandhya Weems RN DISREGARD ABOVE DOCUMENTATION WRONG TIME
--- NOTE | 2016-10-29 07:23 | NUR ---
PT AWAKE AND VERBALLY RESPONSIVE. MORE INTERACTIVE AND LUCID TODAY. BS 164MG/DL, 2UNITS OF HUMALOG GIVEN INSULIN PER SLIDING SCALE. BILATERAL SOFT WRIST RESTRAINT AND MITTENS IN PLACE. NO S/S OF RESPIRATORY DISTRESS. PT IN STABLE CONDITION. ENDORSED TO NEXT SHIFT FOR CONTINUITY OF CARE.
--- NOTE | 2016-10-29 07:25 | NUR ---
RECEIVED PT IN BED. AWAKE. PT TRIED TO GET OUT OF BED. REORIENTATION DONE. PT LISTENS. LESS CONFUSION NOTED THAT YESTERDAY. PT COOPERATIVE AT THIS TIME. NO SOB NOTED ON 2LPM NC. DENIES ANY PAIN OR DISCOMFORT AT THIS TIME. PT VERBALIZED HE WANTS TO HAVE SOME ICED COLD WATER. PT SERVED WITH ICED WATER. PT TOLERATED WE. POSITIVE BOWEL SOUNDS NOTED ON FOUR QUADRANTS. PT ON BEDREST. PT INCONTINENT.SAFETY PRECAUTION IN PLACE. CALL LIGHT WITHIN REACH.
[2016-10-29 07:47] LABS: WHITE BLOOD COUNT (AUTO) 11.9 K/uL (4.8-10.8)
[2016-10-29 08:00] VITALS: BP 168/107
[2016-10-29] MEDS: LACTOBACILLUS RHAMNOSUS GG 1 EACH CAP PO SCH (09:27)
[2016-10-29] MEDS: ECOTRIN 81 MG TABEC PO SCH (09:27)
[2016-10-29] MEDS: ARIPiprazole 10 MG TAB PO SCH (09:27)
[2016-10-29] MEDS: FERROUS SULFATE 325 MG TABEC PO SCH (09:27)
[2016-10-29] MEDS: DOCUSATE SODIUM 100 MG GELCAP PO SCH ×2 (09:28→21:56)
[2016-10-29] MEDS: METOPROLOL 25 MG TAB PO SCH ×2 (09:28→21:54)
--- NOTE | 2016-10-29 09:30 | NUR ---
PT WOKE UP FROM SLEEP. MORE ALERT THAT YESTERDAY, SLURRED SPEECH STILL NOTED BUT MORE UNDERSTANDABLE. PT TOOK HIS MEDICATION WITHOUT FIGHTING. PT COOPERATIVE WITH CHANGING BED PADS AND LINENS. PT CALM RIGHT NOW. OFF RESTRAINTS. FREQUENT CHECKS DONE. PT WAS OFFERED HIS BREAKFAST AND WAS ASSISTED IN FEEDING WITHOUT FIGHTING. PT ATE HIS OATMEAL, TOLERATED WELL, NO SIGNS AND SYMPTOMS OF SOB AND ACUTE DISTRESS NOTED AT THIS TIME.
--- NOTE | 2016-10-29 11:00 | NUR ---
PHYSICAL THERAPIST CAME TO SEE PT. AND ASSISTED PT TO SIT ON A CHAIR. PT AMBULATED WITH WALKER TOLERATED WELL. PT COOPERATIVE. NO AGITATION NOTED. NO SOB. DENIES ANY PAIN OR DISCOMFORT AT THIS TIME.
--- NOTE | 2016-10-29 11:23 | NUR ---
DR. RICKS MADE AWARE OF POTASSIUM LEVEL OF PT AT 3.3. WITH ORDERS MADE AND CARRIED OUT.
[2016-10-29 12:00] VITALS: BP 145/87
[2016-10-29] MEDS ORDERED: POTASSIUM CHLORIDE 20% 40 MEQ/15 ML UDC PO SCH (12:00)
[2016-10-29] MEDS ORDERED: POTASSIUM CHLORIDE 10 MEQ TABER PO SCH (12:00)
[2016-10-29] MEDS ORDERED: KCL 20 MEQ/WATER INJ PREMIX 100 ML IV SCH (14:00)
[2016-10-29 15:21] LABS: HEMOGLOBIN A1C 7.1 % (4.8-5.6)
[2016-10-29] MEDS: NACL 0.9% 1,000 ML IV SCH (15:45)
[2016-10-29 16:00] VITALS: BP 154/97
--- NOTE | 2016-10-29 16:00 | NUR ---
HHN THERAPY GIVEN VIA BLOWBY PATIENT CONFUSED AND COMBATIVE
--- NOTE | 2016-10-29 17:27 | NUR ---
PT STARTED TO GET AGITATED. STARTED TO REMOVE 02 CANNULA. STARTS TO KICK STAFF AND PUNCH, WHEN TRYING TO GET CHANGED. CONFUSION NOTED. REORIENTATION DONE BUT INEFFECTIVE. CALLED DR. ROCA, MADE AWARE. AND ASKED IF SHE WOULD WANT TO RENEW RESTRAINT ORDER. SHE SAID TO TRY THE PRN HALDOL FIRST. MEDICATION ADMINISTERED PRN ORDERED
[2016-10-29] MEDS: HALOPERIDOL IM 5 MG/ML VIAL IM PRN (17:34)
--- NOTE | 2016-10-29 17:44 | NUR ---
KARISSA, SON, CAME TO SEE PT. AND PT CALMED DOWN A LITTLE BIT. PT ABLE TO RECOGNIZE THE SON. PT STOPPED GETTING OUT OF BED.
--- NOTE | 2016-10-29 19:20 | NUR ---
PT IN BED. ASLEEP. AROUSABLE TO VOICE. KEPT CLEAN DRY AND COMFORTABLE. NEEDS ATTENDED. SAFETY PRECAUTION MAINTAINED. PT ON STABLE CONDITION. ENDORSED TO CASKET INSPECTOR REGARDING CALL FOR RESIDENT DR. ROCA REGARDING RESTRAINT ORDER. IF PRN HALDOL WON'T WORK. ENDORSED TO CASKET INSPECTOR FOR CONTINUITY OF CARE.
--- NOTE | 2016-10-29 19:30 | NUR ---
PT REMOVED HIS IV CONNECTION, GOT OUT OF THE BED. STAFF WAS ALERTED BY THE BED ALARM. PT WAS UP WALKING AT THE BEDSIDE. VERY CONFUSED. FIGHTS TO GET IN BED, NASAL CANNULA REMOVED. IV LINE RECONNECTED. REORIENTED PT. ENDORSED TO MARINE ENGINEERING CONSULTANT REGARDING THE CALL THAT WAS MADE FOR THE RESIDENT DR. ROCA, FOR THE RENEWAL OF THE RESTRAINT AND THAT DOCTOR WOULD WANT TO SEE FIRST HOW PT WILL DO WITH THE PRN HALDOL ORDER. ENDORSED TO MARINE ENGINEERING CONSULTANT THAT HALDOL WAS ALREADY GIVEN AND TO CALL BACK DOCTOR IF PRN MED DOESN'T WORK AFTER OBSERVING AND MONITORING.
--- NOTE | 2016-10-29 19:31 | NUR ---
RECEIVED PT FROM ADDIE ORR PT CONFUSED ON TELEMETRY SR PACS TRYING TO GET OUT OF BED ON BILATERAL SOFT WRIST RESTRAINT, IV ON LEFT FA WAS RECONNECTED LINEN CHANGED DR [employer] MECHANIC DR HUTCHINSON WILL BE CALL TO RENEW RESTRAINT ORDER INITIAL ASSESSMENT DONE.
[2016-10-29 20:00] VITALS: BP 154/86
[2016-10-29] MEDS ORDERED: QUEtiapine FUMARATE 25 MG TAB PO SCH (21:00)
--- NOTE | 2016-10-29 21:30 | NUR ---
BLOOD SUGAR TEST 107 PT COOPERATIVE TO TAKE HIS ORAL MEDIC ON BILATERAL SOFT WRIST RESTRAINT FOLLOW PRN
[2016-10-29] MEDS: FAMOTIDINE 20 MG/2 ML VIAL IV SCH (21:52)
[2016-10-29] MEDS: DONEPEZIL 10 MG TAB PO SCH (21:53)
[2016-10-29] MEDS: SIMVASTATIN 10 MG TAB PO SCH (21:55)
[2016-10-30] VITALS: BP 171/98
--- NOTE | 2016-10-30 | NUR ---
PT CONFUSED SLEEPING ON AND OFF ON TELMETRY SR REPOSITIONED Q2H ON BILATERAL SOFT WRIST RESTRAINT
[2016-10-30] MEDS: PIPER/TAZO 2.25GM/D5W PREMIX 50 ML IV SCH ×5 (00:30→23:07)
[2016-10-30] MEDS: ALBUTEROL SULFATE/IPRATROPIU 3 ML SOL IH SCH ×6 (03:11→23:11)
--- NOTE | 2016-10-30 03:42 | NUR ---
PT AWAKE AGITATED ON TELEMETRY SR AND ON BILATERL SOFT WRIST RESTRAINT
[2016-10-30 04:00] VITALS: BP 163/116
[2016-10-30] MEDS: METOPROLOL 25 MG TAB PO SCH ×3 (04:12→20:33)
--- NOTE | 2016-10-30 04:48 | NUR ---
SPONGE BATH GIVEN LINEN CHANGED ON TELE ST REPOSITIONED PT FOLLOW SIMPLE COMMANDS,CONFUSED
[2016-10-30 06:11] LABS: BASOPHILS % (AUTO) 0.3 % (0.0-2.0); EOSINOPHILS # (AUTO) 0.1 K/uL (0-0.4); EOSINOPHILS % (AUTO) 1.1 % (0.0-4.0); HEMATOCRIT 34.2 % (36-52); HEMOGLOBIN 11.1 g/dL (12.0-18.0); LYMPHOCYTES # (AUTO) 0.6 K/uL (2.0-11.5); MEAN CORPUSCULAR HEMOGLOBIN 26 pg (27-31); MEAN CORPUSCULAR HGB CONC 33 g/dL (33-37); MEAN CORPUSCULAR VOLUME 80 fL (80-94); MONOCYTES # (AUTO) 1.1 K/uL (0.8-1.0); MONOCYTES % (AUTO) 10.6 % (1.7-9.3); NEUTROPHILS # (AUTO) 8.7 K/uL (1.8-7.7); PLATELET COUNT (AUTO) 344 K/uL (140-450); RED BLOOD CELL COUNT(AUTO) 4.28 MIL/uL (4.20-6.10); RED CELL DISTRIBUTION WIDTH 14.6 % (11.6-13.7)
[2016-10-30 06:36] LABS: MAGNESIUM 1.7 mg/dL (1.8-2.4); PHOSPHORUS 3.6 mg/dL (2.5-4.9)
[2016-10-30] MEDS: BLOOD GLUCOSE MONITORING 1 DEV DEV FS SCH ×4 (06:39→21:07)
[2016-10-30] MEDS: INSULIN LISPRO SLIDING SCALE 100 UNITS/ML VIAL SUBQ PRN (06:41)
--- NOTE | 2016-10-30 06:42 | NUR ---
BLOOD SUGAR TEST 164 COVERAGE WITH 2 UNITS HUMALOG SUBQ PT VERY CONFUSED ON BILATERAL SOFT WRIST RESTRAINT
[2016-10-30 06:44] LABS: WHITE BLOOD COUNT (AUTO) 10.5 K/uL (4.8-10.8)
[2016-10-30 07:02] LABS: ANION GAP 15.4 (8-16); CARBON DIOXIDE 25.1 mmol/L (21-32); CHLORIDE 109 mmol/L (98-107); CREATININE 1.5 mg/dL (0.6-1.3); GLUCOSE 155 mg/dL (74-106); POTASSIUM 3.5 mmol/L (3.5-5.1); SODIUM SERUM 146 mmol/L (136-145); UREA NITROGEN, BLOOD 17 mg/dL (7-18)
--- NOTE | 2016-10-30 07:20 | NUR ---
RECEIVED PT FROM NIGHT NURSE, PT IS CONFUSED AND MUMBLES WHEN SPOKEN TO. ON TELEMETRY: SR. ON BILATERAL SOFT WRIST RESTRAINT. IV OF NA AT 40 ML/HR ON LFA, PATENT AND INFUSING WELL. INITIAL ASSESSMENT DONE. CALL LIGHT WITHIN REACH. WILL CONTINUE TO MONITOR FOR ANY CHANGES.
[2016-10-30 07:47] LABS: CALCIUM 9.1 mg/dL (8.5-10.1)
[2016-10-30 08:00] VITALS: BP 157/99
[2016-10-30] MEDS: DOCUSATE SODIUM 100 MG GELCAP PO SCH ×2 (09:00→20:33)
[2016-10-30] MEDS: LACTOBACILLUS RHAMNOSUS GG 1 EACH CAP PO SCH (10:29)
[2016-10-30] MEDS: ARIPiprazole 10 MG TAB PO SCH ×2 (10:29→20:32)
[2016-10-30] MEDS: ECOTRIN 81 MG TABEC PO SCH (10:30)
[2016-10-30] MEDS: FERROUS SULFATE 325 MG TABEC PO SCH (10:30)
--- NOTE | 2016-10-30 10:30 | NUR ---
DID NOT GIVE COLACE DUE TO DIARRHEA.
--- NOTE | 2016-10-30 10:30 | NUR ---
GAVE MORNING MEDS TO PT. WELL TOLERATED. WILL CONTINUE TO MONITOR PATIENT.
--- NOTE | 2016-10-30 12:38 | NUR ---
10/30/16 RD FOLLOW-UP ASSESSMENT COMPLETED PLEASE REFER TO NUTRITION ASSESSMENT UNDER CARE ACTIVITY FOR ESTIMATED NUTRITIONAL NEEDS. 1. CONTINUE 60 G CONSISTENT CARBOHYDRATE WITH TEXTURE PER ST RECOMMENDATIONS (PUREE, THIN LIQUIDS) + GLUCERNA BID 2. RD TO FOLLOW-UP 2-3 DAYS; HIGH RISK BLAKE TORRES, RD
--- NOTE | 2016-10-30 12:42 | NUR ---
GIVEN PT.'S IV ANTIBIOTIC SCHEDULED. WILL CONTINUE TO MONITOR FOR ANY CHANGES. CALL LIGHT WITHIN REACH. SAFETY MEASURES IN PLACE.
--- NOTE | 2016-10-30 13:11 | NUR ---
PT'S FAMILY REQUESTED FOR INFORMATION IN REGARDS TO DEMENTIA. GIVEN INFORMATIONAL HANDOUT.
--- NOTE | 2016-10-30 15:00 | NUR ---
PT SEEN ASLEEP ON BED. WILL CONTINUE TO MONITOR FOR ANY CHANGES. SAFETY MEASURES IN PLACE. CALL LIGHT WITHIN REACH.
--- NOTE | 2016-10-30 15:47 | NUR ---
BS WAS 95. NO COVERAGE WAS GIVEN. Addendum: 10/30/16 at 1548 by Shelly Hutson RN BS WAS 138 Addendum: 10/30/16 at 1549 by Shelly Hutson RN BLOOD SUGAR CHECK AT 11:30 Addendum: 10/30/16 at 1720 by Shelly Hutson RN DISREGARD ABOVE NOTES, WRONG PT.
[2016-10-30 16:00] VITALS: BP 157/99
--- NOTE | 2016-10-30 16:40 | NUR ---
PT WAS DESATURATING AT 87 - 88%. CALLED RT TO CHECK PT.
--- NOTE | 2016-10-30 16:59 | NUR ---
CALLED TO FLOOR DUE TO PT DESATURATING. PT PRESENTED WITH SHALLOW BREATHING AND ABNORMAL BREATHING PATTERN, PT TRIED ON MULTIPLE OXYGEN DELIVERY DEVICES AND PT SATURATION WOULD STILL NOT RISE. PT PLACED ON BIPAP 10/5, R14 AND FIO2 40%. BIPAP ALARMS ARE ON AND FUNCTIONING. NURSE GENEVIEVE IS AWARE. MADE AWARE.
--- NOTE | 2016-10-30 17:08 | NUR ---
ABG RESULTS GIVEN TO .
[2016-10-30 17:09] LABS: BLOOD GAS PH 7.411 (7.35-7.45)
[2016-10-30 17:10] LABS: BLOOD GAS BASE EXCESS -0.3 mmol/L (-2.0-2.0); BLOOD GAS HCO3 24.2 mmol/L; BLOOD GAS PO2 89.9 mmHg
--- NOTE | 2016-10-30 18:20 | NUR ---
CALLED TO PT'S ROOM DUE TO PT DESATURATING TO 79%. PT FOUND ON ROOM AIR, RETURNED TO 5 L/M OXYMIZER HOWEVER PT'S SAT CONTINUED TO STAY IN LOW TO MID 80'S. PT PLACED ON A 50% VENTI MASK, SAT INCREASED TO 92%. PT'S RN, JOSELINE AWARE OF CHANGES. PT VERY AGITATED, KEPT TRYING TO TAKE OFF MASK. PT GIVEN MEDS BY RN.
[2016-10-30] MEDS: HALOPERIDOL IM 5 MG/ML VIAL IM PRN (18:49)
--- NOTE | 2016-10-30 18:49 | NUR ---
PT AGITATED, TRYING TO TAKE OUT OXYMIZER, O2 SATURATIONS AT 90-91%. HALDOL 5 MG IM GIVEN PRN. WILL CONTINUE TO MONITOR PT.
--- NOTE | 2016-10-30 19:05 | NUR ---
RCV'D PT ON 50% VENTI MASK. SPO2 92% HR 73. BIPAP AT BEDSIDE PRN. NO SOB NOTED PT IS AWAKE AND CONFUSED. HHN TX GIVEN. WILL CONTINUE TO MONITOR.
--- NOTE | 2016-10-30 19:05 | NUR ---
PT'S LATEST 02 SATS AT 92% ON 15 LITERS OF VENTURI MASK. PT AWAKE, NO SOB NOTED. NO SIGNS OF PAIN. WILL ENDORSE TO NEXT SHIFT NURSE FOR CONTINUITY OF CARE.
--- NOTE | 2016-10-30 19:30 | NUR ---
RECEIVED REPORT FROM JOSELINE RN AT BEDSIDE. PT IS VERY CONFUSED, VERY AGITATED AND COMBATIVE. PULLING OUT IV LINES AND MONITOR AND TRYING TO GET OUT FROM THE BED. GIVEN PRN MEDICATION FOR AGITATION. ON VENTURI MASK @ 15L/MIN 50%. NO S/S OF RESPIRATORY DISTRESS OR SOB NOTED. PLAN OF CARE REVIEWED TO PT BUT UNABLE TO COMPREHEND. CALL LIGHT WITHIN REACH. WILL CONTINUE TO MONITOR.
[2016-10-30] MEDS: NACL 0.9% 1,000 ML IV SCH (19:47)
[2016-10-30] MEDS: FAMOTIDINE 20 MG/2 ML VIAL IV SCH (20:31)
[2016-10-30] MEDS: DONEPEZIL 10 MG TAB PO SCH (20:33)
[2016-10-30] MEDS: SIMVASTATIN 10 MG TAB PO SCH (20:34)
--- NOTE | 2016-10-30 22:00 | NUR ---
PT IS SLEEPING RIGHT NOW BUT EASILY AROUSABLE. NO S/S OF ANY DISCOMFORT AT THIS TIME. OFF FROM SOFT WRIST RESTRAINT. WILL CONTINUE TO MONITOR.
[2016-10-31] VITALS: BP 112/71
--- NOTE | 2016-10-31 00:10 | NUR ---
PT IS STILL SLEEPING RIGHT NOW BUT EASILY AROUSABLE. NO S/S OF ANY DISCOMFORT AT THIS TIME. ALL NEEDS ARE ATTENDED. CALL LIGHT WITHIN REACH. WILL CONTINUE TO MONITOR.
[2016-10-31] MEDS: ALBUTEROL SULFATE/IPRATROPIU 3 ML SOL IH SCH ×3 (02:41→10:30)
--- NOTE | 2016-10-31 05:00 | NUR ---
AM CARE RENDERED. BED LINEN CHANGED. REPOSITIONED PATIENT. KEPT CLEAN AND DRY. CALL LIGHT WITHIN REACH. WILL CONTINUE TO MONITOR.
[2016-10-31] MEDS: PIPER/TAZO 2.25GM/D5W PREMIX 50 ML IV SCH (05:03)
[2016-10-31] MEDS: BLOOD GLUCOSE MONITORING 1 DEV DEV FS SCH ×2 (06:33→11:55)
[2016-10-31 06:43] LABS: HEMATOCRIT 34.4 % (36-52); HEMOGLOBIN 11.3 g/dL (12.0-18.0); MEAN CORPUSCULAR HEMOGLOBIN 26 pg (27-31); MEAN CORPUSCULAR HGB CONC 33 g/dL (33-37); MEAN CORPUSCULAR VOLUME 80 fL (80-94); PLATELET COUNT (AUTO) 311 K/uL (140-450); RED BLOOD CELL COUNT(AUTO) 4.29 MIL/uL (4.20-6.10); RED CELL DISTRIBUTION WIDTH 15.2 % (11.6-13.7); WHITE BLOOD COUNT (AUTO) 18.8 K/uL (4.8-10.8)
[2016-10-31 06:55] LABS: ANION GAP 15.5 (8-16); CALCIUM 8.8 mg/dL (8.5-10.1); CHLORIDE 109 mmol/L (98-107); CREATININE 1.7 mg/dL (0.6-1.3); GLUCOSE 142 mg/dL (74-106); POTASSIUM 3.5 mmol/L (3.5-5.1); SODIUM SERUM 148 mmol/L (136-145); UREA NITROGEN, BLOOD 22 mg/dL (7-18)
[2016-10-31 07:07] LABS: BAND % (MANUAL) 9 % (0-8); LYMPHOCYTES % (MANUAL) 7 % (20-46); MONOCYTES % (MANUAL) 2 % (5-12); NEUTROPHILS % (MANUAL) 82 (43-65)
--- NOTE | 2016-10-31 07:16 | NUR ---
PT HAS NO S/S OF ANY DISCOMFORT. PLAN OF CARE ENDORSE TO ANDREEA ORR AT BEDSIDE FOR CONTINUITY OF CARE.
--- NOTE | 2016-10-31 07:16 | NUR ---
RECEIVED REPORT FROM NIGHT NURSE, PT IS AAOX1 TO SELF, IV TO LE FA 22G INFUSING WELL , RIGHT AC 20 SALINE LOCK, SKIN LEFT ELBOW SCAB,ON VENTURI MASK. INITIAL ASSESSMENT COMPLETED, REVIEW PLAN OF CARE WITH PT, PT UNABLE TO VERBALIZE UNDERSTANDING. ALL SAFETY PRECAUTIONS MET. CALL LIGHT WITHIN REACH. WILL CONTINUE TO MONITOR.
[2016-10-31 08:00] VITALS: BP 106/72
[2016-10-31] MEDS: METOPROLOL 25 MG TAB PO SCH (09:00)
[2016-10-31] MEDS: ARIPiprazole 10 MG TAB PO SCH (09:56)
[2016-10-31] MEDS: LACTOBACILLUS RHAMNOSUS GG 1 EACH CAP PO SCH (09:57)
[2016-10-31] MEDS: DOCUSATE SODIUM 100 MG GELCAP PO SCH (09:57)
[2016-10-31] MEDS: FERROUS SULFATE 325 MG TABEC PO SCH (09:58)
[2016-10-31] MEDS: ECOTRIN 81 MG TABEC PO SCH (09:58)
--- NOTE | 2016-10-31 10:00 | NUR ---
DUE MEDICATIONS GIVEN WITH APPLE SAUCE. ALL SAFETY PRECAUTIONS MET. WILL CONTINUE TO MONITOR.
[2016-10-31] MEDS ORDERED: PIPER/TAZO 2.25GM/D5W PREMIX 50 ML IV SCH (12:00)
--- NOTE | 2016-10-31 12:00 | NUR ---
DUE MEDICATION GIVEN. PT IS RESTING, NO S/S OF DISTRESS NOTED. ALL NEEDS MET. WILL CONTINUE TO MONITOR.
--- NOTE | 2016-10-31 12:17 | NUR ---
PUT PT ON SOFT RETRAINS. PT PULLING VENTURI MASK OF O2 SAT 89%. WILL CONTINUE TO MONITOR. Addendum: 11/03/16 at 1705 by Shahana Salas RN LATE ENTRY: 10/31/16 1217: CURRENTLY IN PT ROOM OXYGEN AT 100% AFTER APPLYING VENTURI MASK. CURRENTLY SITTING OUTSIDE OF PT ROOM, PT WITHIN VISUAL FIELD.
--- NOTE | 2016-10-31 13:25 | NUR ---
CHECKED IN ON PT, NOTICED PT LETHARGIC UNRESPONSIVE, PT TOOK A DEEP BREATH AND THEN NOTICED PT STOP BREATHING. CALL CODE BLUE AND RT IN ROOM. 1328 CPR WAS STARTED, DIRECTED [place] SUNI RAYGOZA FROM ER. CODE ENDED 1346. SON KARISSA JOSEPH NOTIFIED 1411 [facility] CALLED
--- NOTE | 2016-10-31 13:55 | NUR ---
called to room due to pt not breathing, cpr was started and pt was bagged with 100% fio2 alcs drugs given and at 1335 pt was intubated 7.0 et tube at 22cm at right corner of mouth by dr. bernardo and at 1346 dr. duong from er called the code
--- NOTE | 2016-10-31 15:59 | NUR ---
DAWN PINTO FROM RELEASE NUMBER [id number] Addendum: 10/31/16 at 1754 by Shahana Salas RN FROM [facility]
--- NOTE | 2016-10-31 16:30 | NUR ---
SPOKE WITH KARISSA (SON ) GAVE ME THE MORTUARY NAME [facility] AND CALLED THE MORTUARY ,ALL THE INFORMATION GIVEN ,KARISSA SIGNED THE PAPER , WILL FISHER MUSSEL THE BODY WITH IN 2 HOURS.
--- NOTE | 2016-10-31 18:12 | NUR ---
[facility] IN TO ACCOUNT SPECIALIST PT.
== END 2016-10-31 18:12 | disposition expired | DRG 208 ==
LOC: MED 01:10 → MTU 04:27
PROVIDERS: ADMIT Family Medicine; ATTEND Family Medicine
PROC: 5A09357 Assistance with Respiratory Ventilation, Less than 24 Consecutive Hours, Continuous Positive Airway Pressure (ICD-10-PCS; principal; 2016-10-30)
PROC: 0BH17EZ Insertion of Endotracheal Airway into Trachea, Via Natural or Artificial Opening (ICD-10-PCS; 2016-10-30)
PROC: 5A1935Z Respiratory Ventilation, Less than 24 Consecutive Hours (ICD-10-PCS; 2016-10-30)
PROC: 5A12012 Performance of Cardiac Output, Single, Manual (ICD-10-PCS; 2016-10-31)
DX: J69.0 Pneumonitis due to inhalation of food and vomit (principal); G93.41 Metabolic encephalopathy; I50.43 Acute on chronic combined systolic (congestive) and diastolic (congestive) heart failure; N17.0 Acute kidney failure with tubular necrosis; J96.01 Acute respiratory failure with hypoxia; K27.4 Chronic or unspecified peptic ulcer, site unspecified, with hemorrhage; E43 Unspecified severe protein-calorie malnutrition; F02.81 Dementia in other diseases classified elsewhere, unspecified severity, with behavioral disturbance; D68.59 Other primary thrombophilia; R64 Cachexia; I42.0 Dilated cardiomyopathy; G30.9 Alzheimer's disease, unspecified; E11.65 Type 2 diabetes mellitus with hyperglycemia; E78.5 Hyperlipidemia, unspecified; K21.9 Gastro-esophageal reflux disease without esophagitis; N40.0 Benign prostatic hyperplasia without lower urinary tract symptoms; I11.0 Hypertensive heart disease with heart failure; R91.1 Solitary pulmonary nodule; E11.51 Type 2 diabetes mellitus with diabetic peripheral angiopathy without gangrene; Z68.24 Body mass index [BMI] 24.0-24.9, adult; Z79.82 Long term (current) use of aspirin; Z79.899 Other long term (current) drug therapy; Z86.73 Personal history of transient ischemic attack (TIA), and cerebral infarction without residual deficits; Z90.49 Acquired absence of other specified parts of digestive tract; I46.8 Cardiac arrest due to other underlying condition
CPT/HCPCS: 36415; 36600; 70450; 71010; 71250; 73080; 80048; 80053; 81001; 82040; 82803; 82948; 83036; 83605; 83690; 83735; 83880; 84100; 84436; 84439; 84443; 84479; 84484; 84550; 85025; 85610; 87040; 87070; 87081; 87086; 87186; 87205; 89220; 92526; 92950; 93005; 94640; 94660; 96361; 96365; 96367; 97110; 97116; 97140; 97530; 99285; J0456; J0696; J1200; J1630; J1815; J2001; J2060; J2270; J2405; J2543; J3475; J3480; J3490; J7030; J7060; J7620; Q0092